=== PATIENT | female | born 1945 | race Caucasian/White ===

== ENCOUNTER → 2019-09-30 10:05 | Outpatient (BNVA) | payer MEDICARE, OTHER, SELFPAY | PROVIDERS: Visit Provider Orthopaedic Surgery | DX: M25.569 Pain in unspecified knee (principal); M25.561 Pain in right knee; M25.562 Pain in left knee | CPT/HCPCS: 73560; 73565 ==

== ENCOUNTER 2022-06-02 18:23 | Inpatient (IN) | payer MEDICARE, SELFPAY ==
[2022-06-02 18:38] VITALS: BP 168/83; PULSE 81; RESP 16; TEMP 36.7; O2SAT 97
--- NOTE | 2022-06-02 21:13 | W.ED.ABDPA2 ---
HPI - Abdominal Pain General: Chief Complaint: Abdominal Pain Stated Complaint: abd pain, n/v, no bowel movement in 4 days, pain Time Seen by Provider: 06/02/22 21:12 History of Present Illness: Ms. Palumbo is a 77-year-old lady with history of diverticulitis and abdominal surgeries presenting to the emergency department for abdominal pain with nausea and vomiting. She reports onset associated with eating peanuts approximately 3 to 4 days ago. Since that time she has had nausea with vomiting which is nonbilious and not bloody. She has also had initially diarrhea followed by no bowel movement and generalized abdominal pain. Symptoms began gradually and have since worsened. Intensity is moderate however at times become severe. She describes it as twisting and sometimes other characteristics of pain. She has had similar episodes in the past. No other specific changes in health, exacerbating, or alleviating factors identified. Onset (ago): day(s) Pain Consistency: constant Location: Diffuse Severity: moderate Quality: cramping, aching and other Radiation: none Migration to: no migration Exacerbating factors: eating, vomiting and movement Relieving factors: rest Context: other Associated Symptoms: Reports change in bowel habits, constipation, diarrhea, nausea and vomiting Review of Systems General: Reports: 10 or more systems reviewed and unremarkable except in HPI and below GI: Reports: nausea, vomiting, diarrhea, constipation and change in bowel habits PFS ED PFSH: Medical History History of cancer of left breast Osteoarthritis of knees, bilateral Surgical History History of bilateral mastectomy History of total abdominal hysterectomy and bilateral salpingo-oophorectomy Social History Smoking and tobacco status: never smoked Alcohol intake: never Physical Exam Const: COMMON NORMALS: alert GENERAL APPEARANCE: cooperative and well developed HENMT: COMMON NORMALS: normocephalic and atraumatic HEAD & SCALP: normocephalic and atraumatic Eye: COMMON NORMALS: conjunctivae normal CONJUNCTIVA: Yes conjunctivae normal SCLERA: sclerae normal Neck/C-Spine: COMMON NORMALS: supple GENERAL: Yes trachea midline Resp: COMMON NORMALS: clear to auscultation bilaterally EFFORT & INSPECTION: Yes able to speak in complete sentences AUSCULTATION: clear to auscultation bilaterally Cardio: COMMON NORMALS: regular rate and regular rhythm RATE: regular rate RHYTHM: regular rhythm GI: COMMON NORMALS: Soft to palpation PALPATION: Yes Soft to palpation, Yes Tenderness to palpation present (GI), No Guarding due to palpation present (GI) and No Rigid due to palpation Extremity: GENERAL: Yes normal exam except as noted and No edema Neuro: COMMON NORMALS: moves all extremities SENSORIUM/ORIENTATION: Yes alert and No Orientation impaired Psych: COMMON NORMALS: mental status grossly normal and Normal thought process present THOUGHT PROCESS: Normal thought process present Course Vital Signs: Vital signs: Vital Signs Temperature 98.9 F 06/06/22 12:54 Pulse Rate 70 06/06/22 12:54 Respiratory Rate 14 06/06/22 12:54 Blood Pressure 118/64 06/06/22 12:54 Pulse Oximetry 97 06/06/22 12:54 Oxygen Delivery Me thod 06/06/22 12:47 MDM - Abdominal Pain Medical Decision Making 77-year-old lady presenting with abdominal pain, nausea, vomiting, change in bowel habits. Exam as above. Abdominal tenderness without evidence of acute surgical abdomen. Labs notable for mild leukocytosis without other significant hematologic abnormality. Metabolic panel with mild metabolic stress and mild elevation in T bili as well as calcium. Lipase is normal. Urinalysis with hematuria without other evidence of urinary tract infection. CT demonstrates high-grade bowel obstruction in the mid small bowel and right axillary lymphadenopathy. I discussed the adenopathy with the patient, she has a very remote history of breast cancer, I did express need for follow-up and concern for recurrence of her breast cancer. Patient treated with analgesia, antiemetic, fluids. Discussed with general surgery, NG tube ordered, patient will be seen in consult. The results of ED evaluation were discussed with the patient including plan for admission due to requirement for level of care not available if discharged to prevent significant worsening/deterioration. Patient agreeable with plan. Discussed with hospitalist service who was agreeable to admit patient. Medical Records I reviewed the patient's medical records. Lab Data I reviewed the patient's lab results. 06/02/22 21:43 06/02/22 21:43 Labs/Radiology: Radiology Impressions Abdomen/Pelvis CT 06/02/22 21:36 IMPRESSION: 1. High-grade mechanical obstruction of the mid small bowel. The cause is not apparent. 2. Right axillary lymphadenopathy, likely malignant. 3. Incidental findings above. ADDENDUM: 06/02/22 3130 THIS REPORT CONTAINS FINDINGS THAT MAY BE CRITICAL TO PATIENT CARE. The findings were verbally communicated via telephone conference with Arron Ayers at 11:01 PM PICKER / PACKER on 06/02/2022. The findings were acknowledged and understood. KUB X-Ray 06/04/22 08:07 IMPRESSION: Nonobstructive bowel gas pattern. Laboratory Results WBC 11.8 10^3/uL (4.0-10.0) H 06/02/22 21:43 RBC 4.71 10^6/uL (4.1-5.3) 06/02/22 21:43 Hgb 14.7 g/dL (11.5-15.3) 06/02/22 21:43 Hct 44.9 % (37.0-47.0) 06/02/22 21:43 MCV 95.3 fl (81-99) 06/02/22 21:43 MCH 31.2 pg (28.0-34.0) 06/02/22 21:43 MCHC 32.7 g/dL (30.0-36.0) 06/02/22 21:43 RDW 13.1 % (12.1-15.1) 06/02/22 21:43 Plt Count 330 10^3/cmm (130-400) 06/02/22 21:43 MPV 9.4 fL (7.4-10.4) 06/02/22 21:43 Neut % (Auto) 83.7 % 06/02/22 21:43 Lymph % (Auto) 9.7 % 06/02/22 21:43 [place] % (Auto) 6.0 % 06/02/22 21:43 Eos % (Auto) 0.1 % 06/02/22 21:43 Baso % (Auto) 0.2 % 06/02/22 21:43 Neut # (Auto) 9.84 10^3/uL (1.8-7.7) H 06/02/22 21:43 Lymph # (Auto) 1.1 10^3/uL (0.8-4.8) 06/02/22 21:43 [place] # (Auto) 0.7 10^3/uL (0.2-0.9) 06/02/22 21:43 Eos # (Auto) 0.0 10^3/uL (0.0-0.8) 06/02/22 21:43 Baso # (Auto) 0.0 10^3/uL (0.0-0.1) 06/02/22 21:43 Nucleated RBC % (auto) 0 % 06/02/22 21:43 Nucleated RBCs # 0.0 /100WBC 06/02/22 21:43 Sodium 136 mmol/L (136-145) 06/02/22 21:43 Potassium 3.7 mmol/L (3.5-5.1) 06/02/22 21:43 Chloride 92 mmol/L (98-107) L 06/02/22 21:43 Carbon Dioxide 32 mmol/L (22-29) H 06/02/22 21:43 Anion Gap 15.7 (5-19) 06/02/22 21:43 BUN 20 mg/dL (8-23) 06/02/22 21:43 Creatinine 0.7 mg/dL (0.5-0.9) 06/02/22 21:43 GFR Calculation Not Reportable 06/02/22 21:43 Glucose 128 mg/dL (65-115) H 06/02/22 21:43 Calculated Osmolality 286 mOsm/kg (285-295) 06/02/22 21:43 Lactic Acid 1.4 mmol/L (0.5-2.2) 06/02/22 22:03 Calcium 10.7 mg/dL (8.5-10.5) H 06/02/22 21:43 Total Bilirubin 1.4 mg/dL (0.15-1.2) H 06/02/22 21:43 AST 20 U/L (0-32) 06/02/22 21:43 ALT 19 U/L (0-33) 06/02/22 21:43 Alkaline Phosphatase 57 U/L (35-105) 06/02/22 21:43 Total Protein 8.6 g/dL (6.6-8.7) 06/02/22 21:43 Albumin 4.9 g/dL (3.5-5.2) 06/02/22 21:43 Globulin 3.7 g/dL (1.3-4.6) 06/02/22 21:43 Lipase 9 U/L (13-60) L 06/02/22 21:43 Urine Color Yellow (Yellow) 06/02/22 21:55 Urine Appearance Clear (CLEAR) 06/02/22 21:55 Urine pH 5 (5-7) 06/02/22 21:55 Ur Specific [place] 1.025 (1.005-1.030) 06/02/22 21:55 Urine Protein 1+ (Negative) H 06/02/22 21:55 Urine Glucose (UA) Norm (Normal) 06/02/22 21:55 Urine Ketones 1+ (Negative) H 06/02/22 21:55 Urine Blood 2+ (Negative) H 06/02/22 21:55 Urine Nitrate Negative (Negative) 06/02/22 21:55 Urine Bilirubin Neg (Negative) 06/02/22 21:55 Urine Urobilinogen Neg mg/dL (Negative) 06/02/22 21:55 Ur Leukocyte Esterase Negative (Negative) 06/02/22 21:55 Urine RBC 5-10 /hpf (0-2) H 06/02/22 21:55 Urine WBC 0-4 /hpf (0-5) H 06/02/22 21:55 Ur Squamous Epith Cells 0-4 /hpf (0-5) H 06/02/22 21:55 Amorphous Sediment Not Reportable 06/02/22 21:55 Urine Bacteria Trace /hpf (NONE) 06/02/22 21:55 Urine Mucus Trace /hpf 06/02/22 21:55 Discharge Plan Discharge Patient Disposition: Admitted As Inpatient Admit Provider: Sheela Doll Clinical Impression: Small bowel obstruction, Abdominal pain, Nausea & vomiting, Hematuria, Axillary adenopathy Condition: Stable Discharge Diet: As Directed Discharge Activity: Resume usual activity Coding Level of Care Code ED Customer Resource Specialist for Chg Fwd Exam Comprehensive
--- NOTE | 2022-06-02 21:36 | CTR_ITS ---
PROCEDURE INFORMATION: Exam: CT Abdomen And Pelvis With Contrast Exam date and time: 06/02/2022 10:32 PM Age: 77 years old Clinical indication: Constipation and nausea and vomiting; Abdominal pain; Generalized; Prior surgery; Surgery date: 6+ months; Surgery type: Hysterectomy for endometrial CA. HX of breast CA and b/l mastectomies; Additional info: Abd pain, n/v, diarrhea then constipation, ? diverticulitis vs obstruction vs other TECHNIQUE: Imaging protocol: Computed tomography of the abdomen and pelvis with contrast. Radiation optimization: All CT scans at this facility use at least one of these dose optimization techniques: automated exposure control; mA and/or kV adjustment per patient size (includes targeted exams where dose is matched to clinical indication); or iterative reconstruction. Contrast material: OMNI 350; Contrast volume: 85 ml; Contrast route: INTRAVENOUS (IV); Other protocol: This patient has received 0 known CTs and 0 known cardiac nuclear medicine studies in the 12 months prior to the current study. COMPARISON: No relevant prior studies available. RADIATION DOSE METRICS: Total DLP (mGy-cm): 513.03 FINDINGS: Liver: The liver is normal. Gallbladder and bile ducts: The gallbladder is normal. There is no biliary dilation. Pancreas: The pancreas is unremarkable. Spleen: Splenic size is normal. There are scattered calcifications consistent with healed granulomas. Adrenal glands: The adrenal glands are unremarkable. Kidneys and ureters: The kidneys are unremarkable. No hydronephrosis or stones. No ureteral dilation. Stomach and bowel: The stomach is decompressed, preventing meaningful evaluation of wall thickness. The duodenum is normal. There is mild dilation and fluid filling of the proximal jejunum which progresses distally into the mid small bowel where there is fecalization of bowel contents and abrupt transition to decompressed distal small bowel. See axial series 5, image [id number]. The distal ileum is completely decompressed. The colon is unremarkable. Appendix: The appendix is normal. Intraperitoneal space: Trace pelvic free fluid. There is mild degenerative disease in the lumbar spine. Vasculature: There is mild aortic atherosclerotic disease. The portal, splenic and superior mesenteric veins are patent. Lymph nodes: There are enlarged right axillary lymph nodes. There is no lymphadenopathy in the retroperitoneum, mesentery, pelvis or inguinal regions. Urinary bladder: The urinary bladder is unremarkable. Reproductive: The uterus is absent. There is no adnexal mass or large cyst. Bones/joints: There is moderate degenerative disease at the left hip. The bony pelvis is intact. Soft tissues: Bilateral silicone breast implants without evidence of extracapsular rupture. 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 CT/CT abdomen pelvis w con* [id number] IMPRESSION: 1. High-grade mechanical obstruction of the mid small bowel. The cause is not apparent. 2. Right axillary lymphadenopathy, likely malignant. 3. Incidental findings above.
[2022-06-02 21:52] LABS: Basophils % 0.2 %; Eosinophils % 0.1 %; Hematocrit 44.9 % (37.0-47.0); Hemoglobin 14.7 g/dL (11.5-15.3); Lymphocytes # 1.1 10^3/uL (0.8-4.8); Lymphocytes % 9.7 %; Mean Corpuscular HGB Conc 32.7 g/dL (30.0-36.0); Mean Corpuscular Hemoglobin 31.2 pg (28.0-34.0); Mean Corpuscular Volume 95.3 fl (81-99); Mean Platelet Volume 9.4 fL (7.4-10.4); Monocytes # 0.7 10^3/uL (0.2-0.9); Neutrophils # 9.84 10^3/uL (1.8-7.7); Neutrophils % 83.7 %; Nucleated Red Blood Cells % 0 %; Platelet Count 330 10^3/cmm (130-400); Red Blood Count 4.71 10^6/uL (4.1-5.3); Red Cell Distribution Width 13.1 % (12.1-15.1); White Blood Count 11.8 10^3/uL (4.0-10.0)
[2022-06-02] MEDS: morphine 4 mg/mL SDV 1 mL IVP (21:53)
[2022-06-02] MEDS: ondansetron 2 mg/ML SDV 2 mL 4 MG IVP (21:53)
[2022-06-02] MEDS: sodium chloride 0.9% 1,000 ML 999 ML IV (21:53)
[2022-06-02 22:05] LABS: Add Urine Microscopic? YES; Bilirubin Urine Neg (Negative); Blood Urine 2+ (Negative); Glucose Urine UA Norm (Normal); Ketones Urine 1+ (Negative); Leukocyte Esterase Urine Negative (Negative); Nitrate Urine Negative (Negative); Protein Urine 1+ (Negative); Specific Gravity, Urine 1.025 (1.005-1.030); Urine Appearance Clear (CLEAR); Urine Color Yellow (Yellow); Urobilinogen Urine Neg (Negative); pH Urine 5 (5-7)
[2022-06-02 22:10] VITALS: BP 163/65; PULSE 75; RESP 14; O2SAT 92
[2022-06-02 22:11] LABS: Add Urine Culture? No; Bacteria Urine TRACE /hpf; Mucus Urine TRACE /hpf; Squamous Epithelial Cell Urine 0-4 /hpf (0-5); WBC Urine 0-4 /hpf (0-5)
[2022-06-02 22:13] LABS: Alanine Aminotransferase 19 U/L (0-33); Albumin Level 4.9 g/dL (3.5-5.2); Alkaline Phosphatase 57 U/L (35-105); Anion Gap 15.7 (5-19); Aspartate Amino Transferase 20 U/L (0-32); Blood Urea Nitrogen 20 mg/dL (8-23); Calcium 10.7 mg/dL (8.5-10.5); Carbon Dioxide 32 mmol/L (22-29); Chloride 92 mmol/L (98-107); Globulin 3.7 g/dL (1.3-4.6); Glucose 128 mg/dL (65-115); Lipase 9 U/L (13-60); Osmolality Calculated 286 mOsm/kg (285-295); Potassium 3.7 mmol/L (3.5-5.1); Sodium 136 mmol/L (136-145); Total Bilirubin 1.4 mg/dL (0.15-1.2); Total Protein 8.6 g/dL (6.6-8.7)
[2022-06-02] MEDS: iohexol 350 mg/mL 500 mL Btl (per mL) IV (22:15)
[2022-06-02 22:25] LABS: Lactic Sepsis W/Reflex 1.4 mmol/L (0.5-2.2)
[2022-06-02 23:01] VITALS: BP 132/66; PULSE 80; RESP 14; O2SAT 97
[2022-06-02 23:30] VITALS: BP 142/61; PULSE 72; RESP 14; O2SAT 98
--- NOTE | 2022-06-02 23:46 | P.HP_ITS ---
Providers/Chief Complaint Admitting Physician: Sheela Doll MD Chief Complaint: abd pain, n/v, no bowel movement in 4 days, pain History of Present Illness Nelly Segura is a 77 year old female Seen earlier today by urgent care where she presented with 3 to 4 days of abdominal pain, abdominal distention and not having had a bowel movement for 4 days. Patient suspected she may have had a diverticulitis and presented to the urgent care at [facility]. Patient was noted to be in significant discomfort, could not lay still and he was sent into the emergency room. She has had nausea and vomiting. No hematemesis. Here she was found to have small bowel obstruction. NGT has been placed and she is being admitted for further care. No fever or chills. normal lactate Review of Systems General: Reports: 10 or more systems reviewed and unremarkable except in HPI and below Const: Denies: fever(s), chills or body aches Eyes: Denies: change in vision, blurry vision or photophobia ENMT: Denies: throat pain, enlarged tonsils, odynophagia or nasal congestion Card: Denies: chest pain, palpitations, irregular heart rhythm, edema, swelli ng of feet/ankles, lightheadedness, pre-syncope, dyspnea on exertion or orthopnea Resp: Denies: dyspnea, productive cough, non-productive cough, wheezing, stridor, pain on inspiration, change in phlegm color, hemoptysis or chest congestion GI: Denies: abdominal pain, nausea, vomiting, hematemesis, coffee ground emesis, dysphagia, heartburn, diarrhea, constipation, GI cramping, change in stool character, hematochezia or melena : Denies: flank pain, difficulty voiding, dysuria, urinary frequency, urinary urgency, urinary hesitancy or hematuria Musc: Denies: neck pain, back pain, extremity pain, joint swelling, joint warmth or deformity Neuro: Denies: headache(s), numbness in extremities, weakness in extremities, sensory changes, difficulty walking, frequent falls, dizziness, vertigo, behavioral changes, Slurred speech present or seizure-like activity Psych: Denies: anxiety, depression, suicidal ideation or homicidal ideation Endo: Denies: polyuria, polydipsia, tired all the time, cold intolerance or hot flashes El/Lymph: Denies: easy bruising or easy bleeding Medications/Allergies Home Medications Medication Instructions Recorded Confirmed Last Taken Type ibuprofen 200 mg capsule 200 mg PO Q6H PRN 09/30/19 06/02/22 Unknown History Allergies Allergy/AdvReac Type Severity Reaction Status Date / Time erythromycin base Allergy unknown Verified 06/02/22 18:43 Sulfa (Sulfonamide Allergy unknown Verified 06/02/22 18:43 Antibiotics) PFSH Acute PFSH: Medical History Osteoarthritis of knees, bilateral Surgical History History of bilateral mastectomy History of total abdominal hysterectomy and bilateral salpingo-oophorectomy Social History Smoking and tobacco status: never smoked Alcohol intake: never Vitals/I&O/Wt Last Vital Signs Temp 98.0 F 06/02/22 18:38 Pulse 75 06/02/22 22:10 Resp 14 06/02/22 22:10 BP 163/65 06/02/22 22:10 Pulse Ox 92 06/02/22 22:10 O2 Del Method 06/02/22 18:38 Weight last 48 hrs Weight 65.771 kg Physical Exam Narrative: General: No acute distress, AO x3 HEENT: PERRLA, pupils bilaterally equal and reactive, pallors not present Chest: Normal vesicular breath sounds, no added sounds, equal good air entry bilaterally CVS: S1-S2 regular, no murmurs, no tachycardia, no gallops, no rubs Abdomen: Soft, mildly distended Neuro: No focal deficits, no facial deformity, AO x3, power 5/5 in all limbs Data 06/02/22 21:43 06/02/22 21:43 Other Labs: Radiology Impressions Abdomen/Pelvis CT 06/02/22 21:36 IMPRESSION: 1. High-grade mechanical obstruction of the mid small bowel. The cause is not apparent. 2. Right axillary lymphadenopathy, likely malignant. 3. Incidental findings above. ADDENDUM: 06/02/22 7176 THIS REPORT CONTAINS FINDINGS THAT MAY BE CRITICAL TO PATIENT CARE. The findings were verbally communicated via telephone conference with Arron Ayers at 11:01 PM MOVE COORDINATOR on 06/02/2022. The findings were acknowledged and understood. Laboratory Results WBC 11.4 10^3/uL (4.0-10.0) H 06/03/22 05:15 RBC 4.21 10^6/uL (4.1-5.3) 06/03/22 05:15 Hgb 13.2 g/dL (11.5-15.3) 06/03/22 05:15 Hct 40.9 % (37.0-47.0) 06/03/22 05:15 MCV 97.1 fl (81-99) 06/03/22 05:15 MCH 31.4 pg (28.0-34.0) 06/03/22 05:15 MCHC 32.3 g/dL (30.0-36.0) 06/03/22 05:15 RDW 13.3 % (12.1-15.1) 06/03/22 05:15 Plt Count 278 10^3/cmm (130-400) 06/03/22 05:15 MPV 9.6 fL (7.4-10.4) 06/03/22 05:15 Neut % (Auto) 81.8 % 06/03/22 05:15 Lymph % (Auto) 8.2 % 06/03/22 05:15 [place] % (Auto) 9.0 % 06/03/22 05:15 Eos % (Auto) 0.2 % 06/03/22 05:15 Baso % (Auto) 0.4 % 06/03/22 05:15 Neut # (Auto) 9.30 10^3/uL (1.8-7.7) H 06/03/22 05:15 Lymph # (Auto) 0.9 10^3/uL (0.8-4.8) 06/03/22 05:15 [place] # (Auto) 1.0 10^3/uL (0.2-0.9) H 06/03/22 05:15 Eos # (Auto) 0.0 10^3/uL (0.0-0.8) 06/03/22 05:15 Baso # (Auto) 0.0 10^3/uL (0.0-0.1) 06/03/22 05:15 Nucleated RBC % (auto) 0 % 06/03/22 05:15 Nucleated RBCs # 0.0 /100WBC 06/03/22 05:15 Sodium 139 mmol/L (136-145) 06/03/22 05:15 Potassium 3.2 mmol/L (3.5-5.1) L 06/03/22 05:15 Chloride 100 mmol/L (98-107) 06/03/22 05:15 Carbon Dioxide 30 mmol/L (22-29) H 06/03/22 05:15 Anion Gap 12.2 (5-19) 06/03/22 05:15 BUN 18 mg/dL (8-23) 06/03/22 05:15 Creatinine 0.6 mg/dL (0.5-0.9) 06/03/22 05:15 GFR Calculation Not Reportable 06/03/22 05:15 Glucose 146 mg/dL (65-115) H 06/03/22 05:15 Calculated Osmolality 293 mOsm/kg (285-295) 06/03/22 05:15 Lactic Acid 1.4 mmol/L (0.5-2.2) 06/02/22 22:03 Calcium 9.5 mg/dL (8.5-10.5) 06/03/22 05:15 Magnesium 1.9 mg/dL (1.7-2.3) 06/03/22 05:15 Total Bilirubin 1.0 mg/dL (0.15-1.2) 06/03/22 05:15 AST 17 U/L (0-32) 06/03/22 05:15 ALT 14 U/L (0-33) 06/03/22 05:15 Alkaline Phosphatase 48 U/L (35-105) 06/03/22 05:15 Total Protein 7.0 g/dL (6.6-8.7) 06/03/22 05:15 Albumin 4.0 g/dL (3.5-5.2) 06/03/22 05:15 Globulin 3.0 g/dL (1.3-4.6) 06/03/22 05:15 Lipase 9 U/L (13-60) L 06/02/22 21:43 Urine Color Yellow (Yellow) 06/02/22 21:55 Urine Appearance Clear (CLEAR) 06/02/22 21:55 Urine pH 5 (5-7) 06/02/22 21:55 Ur Specific [place] 1.025 (1.005-1.030) 06/02/22 21:55 Urine Protein 1+ (Negative) H 06/02/22 21:55 Urine Glucose (UA) Norm (Normal) 06/02/22 21:55 Urine Ketones 1+ (Negative) H 06/02/22 21:55 Urine Blood 2+ (Negative) H 06/02/22 21:55 Urine Nitrate Negative (Negative) 06/02/22 21:55 Urine Bilirubin Neg (Negative) 06/02/22 21:55 Urine Urobilinogen Neg mg/dL (Negative) 06/02/22 21:55 Ur Leukocyte Esterase Negative (Negative) 06/02/22 21:55 Urine RBC 5-10 /hpf (0-2) H 06/02/22 21:55 Urine WBC 0-4 /hpf (0-5) H 06/02/22 21:55 Ur Squamous Epith Cells 0-4 /hpf (0-5) H 06/02/22 21:55 Amorphous Sediment Not Reportable 06/02/22 21:55 Urine Bacteria Trace /hpf (NONE) 06/02/22 21:55 Urine Mucus Trace /hpf 06/02/22 21:55 A&P Assessment and plan (1) Small bowel obstruction: High-grade mechanical obstruction of the mid small bowel on CT NGT in place, to low intermittent suction Suregry consult Conservative management for now IVF D5NS @ 100 cc/hr (2) Abdominal pain: Plan HTN: Does not typically take medications at home, will add prmn hydralazine Incidentally noted axillary lymahadenopathy : h/o breast ca, will likely need biopsy for further diagnostics Attestations Medical Necessity Statement*: > 2mdinight admission aticipated for management of SBO Coding Level of Care Code Acute Code for Chg Fwd Diagnoses Small bowel obstruction K56.609 Abdominal pain R10.9
[2022-06-02 23:47] VITALS: BP 158/79; PULSE 80; RESP 17; TEMP 36.8; O2SAT 95
[2022-06-03] VITALS (30 sets, daily range): BP systolic 97–162; BP diastolic 42–80; PULSE 57–157; RESP 12–25; TEMP 36.7–36.9; O2SAT 90–99; BMI 29.7
[2022-06-03] MEDS: midazolam 1 mg/mL INJ 2 mL 2 MG IVP (00:25)
[2022-06-03] MEDS: cetacaine Spray 5 gm Can 1 SPRAY TOPICAL (00:30)
[2022-06-03] MEDS: famotidine 20 mg/2 mL INJ IVP (01:54)
[2022-06-03] MEDS: enoxaparin 40 mg/0.4 mL Syringe SUBCUT (01:54)
[2022-06-03] MEDS: dextrose 5%-sod chloride 0.9% 1,000 ML 100 ML IV ×3 (01:54→19:48)
[2022-06-03] MEDS: morphine 4 mg/mL SDV 1 mL 2 MG IVP ×2 (04:06→09:28)
[2022-06-03 05:40] LABS: Basophils % 0.4 %; Eosinophils % 0.2 %; Hematocrit 40.9 % (37.0-47.0); Hemoglobin 13.2 g/dL (11.5-15.3); Lymphocytes # 0.9 10^3/uL (0.8-4.8); Lymphocytes % 8.2 %; Mean Corpuscular HGB Conc 32.3 g/dL (30.0-36.0); Mean Corpuscular Hemoglobin 31.4 pg (28.0-34.0); Mean Corpuscular Volume 97.1 fl (81-99); Mean Platelet Volume 9.6 fL (7.4-10.4); Neutrophils % 81.8 %; Nucleated Red Blood Cells % 0 %; Platelet Count 278 10^3/cmm (130-400); Red Blood Count 4.21 10^6/uL (4.1-5.3); Red Cell Distribution Width 13.3 % (12.1-15.1); White Blood Count 11.4 10^3/uL (4.0-10.0)
[2022-06-03 06:04] LABS: Alanine Aminotransferase 14 U/L (0-33); Alkaline Phosphatase 48 U/L (35-105); Anion Gap 12.2 (5-19); Aspartate Amino Transferase 17 U/L (0-32); Blood Urea Nitrogen 18 mg/dL (8-23); Calcium 9.5 mg/dL (8.5-10.5); Carbon Dioxide 30 mmol/L (22-29); Chloride 100 mmol/L (98-107); Glucose 146 mg/dL (65-115); Magnesium 1.9 mg/dL (1.7-2.3); Osmolality Calculated 293 mOsm/kg (285-295); Potassium 3.2 mmol/L (3.5-5.1); Sodium 139 mmol/L (136-145)
--- NOTE | 2022-06-03 08:31 | XRR_ITS ---
PROCEDURE INFORMATION: Exam: XR Abdomen Exam date and time: 06/03/2022 10:50 AM Age: 77 years old Clinical indication: Abdominal pain; Generalized; Additional info: Sbo TECHNIQUE: Imaging protocol: Radiologic exam of the abdomen. Views: Frontal supine view of the abdomen. 1 View. Total images: 1 COMPARISON: CT abdomen pelvis w con* [id number] 06/02/2022 10:32 PM FINDINGS: Tubes, catheters and devices: Enteric tube is seen with the tip in the body of the stomach. Gastrointestinal tract: Bowel gas pattern is nondistended and nonobstructive. Intraperitoneal space: Numerous surgical clips noted within the lower abdomen and pelvis. Organs: Urinary contrast material present at the time of imaging. Bones/joints: There are moderate degenerative changes in the left hip joint. Spinal degenerative changes are evident. XR/XR KUB portable [id number] IMPRESSION: 1. Normal bowel gas pattern 2. Enteric tube is seen with the tip in the body of the stomach.
--- NOTE | 2022-06-03 09:01 | ECG_ITS ---
[facility] Test Date: 2022-06-03 Pat Name: Nelly Segura Department: Room: 276 Gender: Female Hand Hardener: : 1945 Requested By: Quan Perea Order Number: [id number] Evelin MD: Ruel Leary M.D. Measurements Intervals [place] Rate: 137 P: 0 RI: 0 QRS: 56 QRSD: 80 T: -60 QT: 306 QTc: 463 Interpretive Statements ATRIAL FIBRILLATION WITH RAPID VENTRICULAR RESPONSE NONSPECIFIC ST & T-WAVE ABNORMALITY No previous ECG available for comparison Electronically Signed On 06-03-2022 11:18:42 STEEL POURER by Ruel Leary M.D. [id number]
[2022-06-03] MEDS: adenosine 3 mg/mL SDV 2mL 6 MG IVP (09:20)
[2022-06-03] MEDS: metoprolol tartrate 1 mg/1 mL SDV 5 mL 5 MG IVP ×2 (09:25)
[2022-06-03] MEDS: magnesium sulfate premix 2 GM/50 ML PIGGYBACK IV (09:26)
[2022-06-03 09:27] LABS: Chol HDL Ratio 4.33 mg/dL (0.0-4.40); Cholesterol 212 mg/dL (0-200); HDL Cholesterol 49 mg/dL (60-100); LDL Cholesterol Calculated 120 mg/dL (50-129); LDL HDL Ratio 2.45 RATIO (0.00-3.22); Thyroid Stimulating Hormone 1.66 uIU/mL (0.27-4.20); Triglycerides 216 mg/dL (0-150)
[2022-06-03 09:43] LABS: Troponin(5th) Baseline 8 ng/L (0-10)
--- NOTE | 2022-06-03 09:43 | P.CONIM_ITS ---
Providers/Reason For Consult Consulting Physician/Specialty*: Dr. Delfino Beckett, DO/General surgery Reason for Consult*: Small bowel obstruction Attending Physician: Quan Perea MD History of Present Illness History of Present Illness Nelly Segura is a 77 year old female, with a history of diverticulitis, total abdominal hysterectomy with bilateral salpingo-oophorectomy and left breast cancer with bilateral mastectomies and Mediport placement, who presented to the hospital with a 4-day history of abdominal pain nausea and vomiting. She reports that she does not pass flatus or had a bowel movement in 3 or 4 days. Her pain is dull diffuse and constant. Palpation makes the pain worse. The NG tube made the pain better. She denies any hematemesis. She had left breast cancer and a mastectomy with 45 years ago. 2 years after that she had a prophylactic mastectomy on the right. She reports that she has not had a m ammogram in several years. CT shows mid bowel small bowel obstruction and prominent right axillary lymph nodes Review of Systems General: Reports: 10 or more systems reviewed and unremarkable except in HPI and below Medications/Allergies Home Medications Medication Instructions Recorded Confirmed Last Taken Type ibuprofen 200 mg capsule 200 mg PO Q6H PRN 09/30/19 06/02/22 Unknown History Allergies Allergy/AdvReac Type Severity Reaction Status Date / Time erythromycin base Allergy unknown Verified 06/02/22 18:43 Sulfa (Sulfonamide Allergy unknown Verified 06/02/22 18:43 Antibiotics) Current Medications Generic Name Dose Route Start Last Admin Trade Name Freq PRN Reason Stop Dose Admin Enoxaparin Sodium 40 mg 06/02/22 23:45 06/03/22 01:54 Enoxaparin 40 Mg/0.4 Ml Syringe SUBCUT 40 mg Q24H WALDEMAR Administration Famotidine 20 mg 06/02/22 23:45 06/03/22 01:54 Famotidine 20 Mg/2 Ml Inj IVP 20 mg Q12H WALDEMAR Administration Dextrose/Sodium Chloride 1,000 mls @ 100 mls/hr 06/02/22 23:45 06/03/22 01:54 Dextrose 5%-Sod Chloride 0.9% IV 100 mls/hr .Q10H WALDEMAR Administration Magnesium Sulfate 2 gm in 50 mls @ 50 mls/hr 06/03/22 09:23 01/29/23 09:26 Magnesium Sulfate Premix IV 06/03/22 10:22 50 mls/hr ONCE ONE Administration Morphine Sulfate 2 mg 06/02/22 23:47 06/03/22 09:28 Morphine 4 Mg/Ml Sdv 1 Ml IVP 2 mg Q4H PRN Administration SEVERE PAIN PFSH Acute PFSH: Medical History (Updated 06/03/22 @ 09:47 by Delfino Beckett DO) History of cancer of left breast Osteoarthritis of knees, bilateral Surgical History (Updated 06/03/22 @ 09:47 by Delfino Beckett DO) History of bilateral mastectomy History of total abdominal hysterectomy and bilateral salpingo-oophorectomy Social History Smoking and tobacco status: never smoked Alcohol intake: never Vitals/I&O/Wt Last Vital Signs Temp 98.0 F 06/03/22 08:00 Pulse 80 06/03/22 08:00 Resp 17 06/03/22 08:00 BP 134/76 06/03/22 08:00 Pulse Ox 96 06/03/22 08:00 O2 Del Method 06/03/22 08:00 06/02/22 06/03/22 06/03/22 22:59 06:59 14:59 Intake Total 1000 / 1000 Balance 1000 / 1000 Weight last 48 hrs Weight 147 lb 8 oz Weight 145 lb Physical Exam Narrative: General : Patient is well developed , no acute distress, oriented x3 Head : Normal cephalic, a-traumatic. Ears : Pinnae and external canal are normal. Hearing is normal. Eyes : PERRLA, Sclera and injection are normal. No conjunctival discharge. Nose : Mucous membranes are without erythema. Throat : buccal mucosa is normal, gums are without significant recession or hypertrophy. Lungs : Equal chest rise bilaterally, no use of accessory muscles, trachea is midline. Cor : A. fib with RVR Breast: Bilateral mastectomies with breast implants. No breast masses palpated bilaterally. There is clinically positive right axillary lymph nodes. No palpable left axillary lymph nodes Abdomen : Soft, mild distention, mild diffuse tenderness to palpation, no guarding rebound or masses Extremities : No edema, no cyanosis or clubbing, dorsalis pedis pulses are present bilaterally, non-tender to palpation of calves. Upper extremities are normal bilaterally. Back : non-tender to palpation, no CVA tenderness. Neuro : CN II - XII intact, Upper and lower extremities have equal and full strength Data 06/03/22 05:15 06/03/22 05:15 A&P Assessment and plan (1) Small bowel obstruction: (2) Axillary adenopathy: (3) History of cancer of left breast: (4) History of bilateral mastectomy: Plan N.p.o. with NG tube to low intermittent wall suction IV fluids Await return of bowel function Recommend bilateral mammograms and ultrasound of right axilla with core needle biopsy as an outpatient Conservative therapy for now. She does not have return of bowel function the next few days she will need at least a diagnostic laparoscopy. Medical management per hospitalist Thank you for this consultation Coding Level of Care Code Acute Code for Chg Fwd Diagnoses Small bowel obstruction K56.609 Axillary adenopathy R59.0 History of cancer of left breast Z85.3 History of bilateral mastectomy Z90.13
[2022-06-03] MEDS: lidocaine 1% 5 ML in potassium chloride premix 100 ML 26.25 ML IV (10:00)
[2022-06-03] MEDS: alteplase 1 mg/mL SDV 2 mL 2 MG INTRACATH (10:04)
--- NOTE | 2022-06-03 10:33 | PC.NURSE ---
Pt appeared to be in SVT on panel monitor 170-200s. Pt is asymptomatic and reports no prior history of arrhythmias. Dr. Beckett and Dr. Perea at bedside. Orders given to administer 6mg adenosine, 5mg metoprolol x 2 doses, 1L bolus NS, 2g magnesium IV. Pt hooked to ZOLL during this time. L chest port accessed will flush but no blood return. Per Dr. Perea tx patient to ICU. Bedside report given ARIN Kaur.
--- NOTE | 2022-06-03 10:42 | USCV_ITS ---
Nelly Segura Age: 77 Gender: F : 1945 Exam Date: 06/03/2022 12:36 Ordering Phys: Quan Perea MD Technologist: NORM Exam Location: [facility] – [place] Indication: afib rvr BP: / HR: 72 Rhythm: Sinus Technical Quality: Adequate MEASUREMENTS (Male / Female) Normal Values 2D ECHO LV Diastolic Diameter PLAX 4.3 cm 4.2 - 5.9 / 3.9 - 5.3 cm LV Systolic Diameter PLAX 3.2 cm IVS Diastolic Thickness 0.6 cm 0.6 - 1.0 / 0.6 - 0.9 cm IVS Systolic Thickness 1.1 cm LVPW Diastolic Thickness 0.6 cm 0.6 - 1.0 / 0.6 - 0.9 cm LVPW Systolic Thickness 1.0 cm LVOT Diameter 2.0 cm LV Ejection Fraction 2D Teich 52.8 % LA Diameter 2.6 cm M-MODE Aortic Annulus Diameter 2.5 cm LA Ao Ratio MM 1.1 MV E Point Septal Separation 0.3 cm DOPPLER PV Peak Velocity 88.0 cm/s FINDINGS Left Ventricle Left ventricle is normal in size. LV systolic function is normal with EF of 55 to 60%. No regional wall motion abnormalities are seen. Right Ventricle Normal in size and function Right Atrium Normal in size Left Atrium Normal in size Mitral Valve Structurally noraml mitral valve. Doppler exam not performed Aortic Valve Structurally normal aortic valve. Doppler exam not performed. Tricuspid Valve Not well visualized Pulmonic Valve Not well visualized. Trace pulmonic regurgitation. Pericardium Normal Aorta Normal in size IVC Appears to be normal CONCLUSIONS LV systolic function is normal with EF of 55 to 60% Grossly normal mitral valve. Trace pulmonic regurgitation No comparison studies are available. Ruel Leary MD (Electronically Signed) Final Date: 03 June 2022 19:39 S
--- NOTE | 2022-06-03 11:15 | ECG_ITS ---
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 Measurements Intervals [place] Rate: 71 P: 29 CT: 155 QRS: 34 QRSD: 78 T: 39 QT: 382 QTc: 417 Interpretive Statements SINUS RHYTHM LOW QRS VOLTAGE IN PRECORDIAL LEADS [QRS DEFLECTION < 1.0 mV IN CHEST LEADS] Compared to ECG 06/03/2022 09:18:28 Low QRS voltage now present Atrial fibrillation no longer present T-wave abnormality no longer present Electronically Signed On 06-03-2022 21:43:45 EXTRAS CASTING DIRECTOR by Ruel Leary M.D. [id number]
[2022-06-03 11:37] LABS: Lactate (Lactic Acid level) 1.7 mmol/L (0.5-2.2)
[2022-06-03 11:39] LABS: Troponin 5 2HR 8.82 ng/L (0-10)
[2022-06-03 11:55] LABS: NT Pro B Type Natriuretic Pept 574 pg/mL (0-450)
[2022-06-03] MEDS: dilTIAZem 30 mg Tablet PO ×2 (12:20→18:51)
--- NOTE | 2022-06-03 12:40 | PC.NURSE ---
New Orders Received Patient noted to be in SR on telemetry, notified Dr. Perea who gave telephone orders to titrate Cardizem gtt off and admin scheduled PO Cardizem.
--- NOTE | 2022-06-03 14:21 | P.PN_ITS ---
Subjective Subjective: Patient was urgently seen on [facility] at roughly 9 AM, heart rates in the high 180s, look like SVT on the monitor she is alert oriented on 2 L, nursing staff and surgery at bedside she denies any abdominal pain, chest pain, no cardiovascular history, was given 6 of adenosine however heart rates came down to the 140s, EKG showed A. fib with RVR, was given metoprolol 5 mg twice, heart rates came down to the 120s, it was difficult to access her left port, nursing staff were diligently working to get another IV, she was given 2 g of mag, both fluid bolus, she had potassium hanging Patient was moved out to the ICU, seen again in ICU, started on a Cardizem drip she remains alert oriented x3, denies any chest pain, no palpitations, no shortness of breath Again examined in the ICU A. fib heart rates in the 120s, heart rates are much improved, her Cardizem is being titrated upwards Patient converted into normal sinus rhythm, resting comfortably on 2 L Vitals/I&O/Wt Last Vital Signs Temp 98.0 F 06/03/22 08:00 Pulse 150 H 06/03/22 09:55 Resp 20 H 06/03/22 09:55 BP 113/62 06/03/22 09:55 Pulse Ox 94 06/03/22 09:55 O2 Del Method 06/03/22 08:00 06/02/22 06/03/22 06/03/22 22:59 06:59 14:59 Intake Total 1000 / 1000 66.333 / 66.333 Balance 1000 / 1000 66.333 / 66.333 Weight last 48 hrs Weight 66.905 kg Weight 65.771 kg Physical Exam Const: COMMON NORMALS: no acute distress and patient oriented x3 Resp: COMMON NORMALS: normal respiratory effort, No retractions and No use of accessory muscles AUSCULTATION: crackles Cardio: COMMON NORMALS: S1 normal heart sound present and S2 normal heart s ound present RATE: tachycardic RHYTHM: abnormal rhythm HEART SOUNDS: S1 normal heart sound present and S2 normal heart sound present GI: OTHER: Abdomen soft, slightly distended, decreased bowel sounds, no guarding, no rebound, no rigidity Extremity: COMMON NORMALS: no pedal edema Neuro: COMMON NORMALS: patient oriented x3 Psych: COMMON NORMALS: mental status grossly normal Data 06/03/22 05:15 06/03/22 05:15 A&P Assessment and plan (1) Small bowel obstruction: High-grade mechanical obstruction of the mid small bowel on CT NGT in place, to low intermittent suction Surgery on-call, Conservative management for now IVF D5NS @ 100 cc/hr (2) Abdominal pain: (3) Atrial fibrillation with RVR: - Continue p.o. Cardizem 30 every 6 hours -Patient's [id number] 2 score is 3 -Continue heparin drip -TSH, mag, cardiac echo (4) Hypokalemia: Replace electrolyte as (5) Hypomagnesemia: Replace electrolytes (6) Hypertriglyceridemia: (7) Hypoxia: On 2 L, monitor respiratory status closely Plan HTN: Does not typically take medications at home, will add prmn hydralazine Incidentally noted axillary lymahadenopathy : h/o breast ca, will likely need biopsy for further diagnostics Attestations Medical Necessity Statement*: Patient requires hospitalization, inpatient, greater than 2 minutes, for distal high-grade bowel obstruction, A. fib with RVR, Critical Care Time: Critical care time spent over 50 minutes Coding Level of Care Code Acute Code for Chg Fwd Diagnoses Small bowel obstruction K56.609 Abdominal pain R10.9 Atrial fibrillation with RVR I48.91 Hypokalemia E87.6 Hypomagnesemia E83.42 Hypertriglyceridemia E78.1 Hypoxia R09.02
[2022-06-03 15:15] LABS: Troponin 5 2HR Delta 0.82 ABS# (0-10)
--- NOTE | 2022-06-03 15:33 | ECG_ITS ---
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 Measurements Intervals [place] Rate: 68 P: 56 RI: 153 QRS: 30 QRSD: 80 T: 45 QT: 402 QTc: 430 Interpretive Statements SINUS RHYTHM LOW QRS VOLTAGE IN PRECORDIAL LEADS [QRS DEFLECTION < 1.0 mV IN CHEST LEADS] Compared to ECG 06/03/2022 12:48:18 No significant changes Electronically Signed On 06-03-2022 21:43:07 EDUCATIONAL TECHNOLOGIST by Ruel Leary M.D. [id number]
[2022-06-03 15:39] LABS: Carcinoembryonic Antigen 0.7 ng/mL (0.0-4.7)
[2022-06-03 15:58] LABS: Estmated Average Glucose 111; Hemoglobin A1C 5.5 % (4.0-6.0)
[2022-06-03 15:59] LABS: Troponin 5 6HR 9.59 ng/L (0-10)
[2022-06-03 16:35] LABS: Troponin 5 6HR Delta 1.59 ng/L (0-12)
[2022-06-03] MEDS: heparin drip 25,000 UNIT/500 ML PREMIX 19 UNIT IV (16:40)
[2022-06-03 23:05] LABS: Partial Thromboplastin Time 60.4 SECONDS (23.9-36.7)
--- NOTE | 2022-06-03 23:43 | PC.NURSE ---
Addendum entered by Ella Koenig RN 06/04/22 00:36: Pt refused Cetacaine. Medication purpose explained to pt. She states, I'm okay now, maybe I will try that later Addendum entered by Ella Koenig RN 06/03/22 23:55: Cetacaine [place]* not cepacaine Original Note: Pt appeared to be extremely anxious when expressing concerns about her NG tube. She says she cant breath w/ the tube in her nose, and that she wants the NG tube removed so this can all be over and she can get some sleep. SpO2 93%. Several interventions to make pt more comfortable (fan placed in room, repositioned pt, adjusted NG tube dressing on the nose, therapeutic communication). Dr. Doll made aware of situation. New order for cepacaine spray to help make the NG more tolerable and 0.5mg IV Ativan ONCE if the cepacaine does not help.
[2022-06-04] VITALS (75 sets, daily range): BP systolic 88–147; BP diastolic 49–93; PULSE 55–78; RESP 12–32; TEMP 36.7–36.8; O2SAT 90–100
[2022-06-04] MEDS: dilTIAZem 30 mg Tablet PO ×5 (00:05→23:41)
[2022-06-04] MEDS: dextrose 5%-sod chloride 0.9% 1,000 ML 100 ML IV (03:55)
[2022-06-04 04:35] LABS: Basophils % 0.7 %; Eosinophils # 0.1 10^3/uL (0.0-0.8); Eosinophils % 1.6 %; Hematocrit 34.6 % (37.0-47.0); Hemoglobin 11.2 g/dL (11.5-15.3); Lymphocytes # 1.2 10^3/uL (0.8-4.8); Lymphocytes % 20.7 %; Mean Corpuscular HGB Conc 32.4 g/dL (30.0-36.0); Mean Corpuscular Volume 98.9 fl (81-99); Mean Platelet Volume 10.2 fL (7.4-10.4); Monocytes # 0.7 10^3/uL (0.2-0.9); Monocytes % 11.6 %; Neutrophils # 3.64 10^3/uL (1.8-7.7); Neutrophils % 64.9 %; Nucleated Red Blood Cells % 0 %; Platelet Count 193 10^3/cmm (130-400); Red Cell Distribution Width 13.5 % (12.1-15.1); White Blood Count 5.6 10^3/uL (4.0-10.0)
[2022-06-04 04:54] LABS: INR 1.07 (0.8-1.2)
[2022-06-04 05:04] LABS: Partial Thromboplastin Time 81.2 SECONDS (23.9-36.7)
[2022-06-04 05:05] LABS: Alanine Aminotransferase 12 U/L (0-33); Albumin Level 3.3 g/dL (3.5-5.2); Alkaline Phosphatase 37 U/L (35-105); Blood Urea Nitrogen 18 mg/dL (8-23); Calcium 8.1 mg/dL (8.5-10.5); Carbon Dioxide 21 mmol/L (22-29); Chloride 107 mmol/L (98-107); Globulin 2.3 g/dL (1.3-4.6); Glucose 109 mg/dL (65-115); Magnesium 1.8 mg/dL (1.7-2.3); Osmolality Calculated 290 mOsm/kg (285-295); Sodium 139 mmol/L (136-145); Total Bilirubin 0.7 mg/dL (0.15-1.2); Total Protein 5.6 g/dL (6.6-8.7)
[2022-06-04 05:11] LABS: NT Pro B Type Natriuretic Pept 400 pg/mL (0-450)
[2022-06-04 05:13] LABS: Anion Gap 14.4 (5-19); Aspartate Amino Transferase 20 U/L (0-32); Potassium 3.4 mmol/L (3.5-5.1)
--- NOTE | 2022-06-04 08:07 | XRR_ITS ---
PROCEDURE INFORMATION: Exam: XR Abdomen Exam date and time: 06/04/2022 8:53 AM Age: 77 years old Clinical indication: Condition or disease; Intestinal condition; Obstruction; Prior surgery; Surgery type: Hysto, bi-lat mastectomy; Patient HX: Cancer (type)--endometrial, breast; Additional info: Asbo TECHNIQUE: Imaging protocol: Radiologic exam of the abdomen. Views: Frontal supine view of the abdomen. 1 View. COMPARISON: CR (ABDOMEN, ) 06/03/2022 10:50 AM FINDINGS: Tubes, catheters and devices: Feeding tube is in satisfactory position. Multiple surgical clips are seen projecting over the mid lower abdomen/pelvis. Gastrointestinal tract: Normal. No bowel dilation. Bones/joints: Degenerative changes of the spine seen. XR/XR KUB portable 85251 IMPRESSION: Nonobstructive bowel gas pattern.
--- NOTE | 2022-06-04 10:32 | PC.CHAP ---
Pastoral Care Encounter/Spiritual Assessment Type of Contact [] Declined training developer visit [] Patient/Family/Request visit [] Outpatient visit [] Follow-up visit [] Physician referral [] Code/Alert [x] Routine visit [] Staff referral [] Actively dying [] Patient sleeping [] Family support [] [] Out of room [] Palliative care [] [x] Receiving care in room [] Pre-surgical visit [] Trauma [] Long length of stay [x] ICU visit [x] Other: physical therapy Relational/Emotional Strength [] Patient feels connected with others/family/visitors/staff [] Distress [] Loneliness/isolation [] Abandonment Spirituality of Patient [] Person of Kayleen [] Attends Orthodox of their Kayleen [] Believes in Prayer [] Reads Bible or Buddhist materials [] There are Spiritual issues to be addressed Peeler Operator Interventions [x] Prayer [] Active listening [] Non-anxious presence [] Spiritual/emotional support [] Crisis/trauma care [] Spiritual counseling [] Bereavement support [] Provided bereavement packet [] Provided Bible/devotional materials [] Provided toy/stuffed animal, coloring book to patient or family member [] Provided Communion [] Anointing/[place] [] Salvation [x] Completed spiritual assessment [] Other: Impact on Illness or Injury [] Angry [] Fearful [] Anxious [] Often cries [] Exhaustion [] Unable to work [] Unable to attend islam [] Unable to walk/stand [] Unable to read [] Unable to drive [] Unable to eat/drink [] Unable to sleep [] Unable to be with family [] Patient intubated [] Other: Summary Time spent with patient
[2022-06-04 10:41] LABS: Partial Thromboplastin Time 75.7 SECONDS (23.9-36.7)
[2022-06-04] MEDS: dextrose 5%-sod chloride 0.9% 1,000 ML 150 ML IV ×2 (12:31→19:36)
--- NOTE | 2022-06-04 12:52 | PM.PN ---
Subjective Subjective: patient reports one episode of passing gas, feeling less bloated, no n/v, no chest pain Vitals/I&O/Wt Last Vital Signs Temp 98.0 F 06/04/22 08:45 Pulse 67 06/04/22 11:48 Resp 16 06/04/22 10:00 BP 137/89 06/04/22 10:00 Pulse Ox 97 06/04/22 11:48 O2 Del Method 06/04/22 11:48 06/03/22 06/04/22 06/04/22 22:59 06:59 14:59 Intake Total 428.916 / 1600.249 920.917 / 2521.166 1170.8 / 1170.8 Output Total 475 / 475 Balance 428.916 / 1600.249 445.917 / 2046.166 1170.8 / 1170.8 Weight last 48 hrs Weight 66.905 kg Weight 65.771 kg Physical Exam Const: COMMON NORMALS: no acute distress Resp: COMMON NORMALS: normal respiratory effort, No retractions, No use of accessory muscles and clear to auscultation bilaterally AUSCULTATION: clear to auscultation bilaterally Cardio: COMMON NORMALS: regular rate, regular rhythm, S1 normal heart sound present and S2 normal heart sound present RATE: regular rate RHYTHM: regular rhythm HEART SOUNDS: S1 normal heart sound present and S2 normal heart sound present GI: OTHER: diminished bowel sounds, no gaurding, no rebound, no rigidity, no distention Extremity: COMMON NORMALS: no pedal edema Data 06/04/22 04:13 06/04/22 04:13 A&P Assessment and plan (1) Small bowel obstruction: High-grade mechanical obstruction of the mid small bowel on CT NGT in place, to low intermittent suction Surgery on-call, Conservative management for now IVF D5NS @ 150 cc/hr (2) Abdominal pain: (3) Atrial fibrillation with RVR: - Continue p.o. Cardizem 30 every 6 hours -Patient's [id number] 2 score is 3 -Continue heparin drip (4) Hypokalemia: Replace electrolyte as (5) Hypomagnesemia: Replace electrolytes (6) Hypertriglyceridemia: (7) Hypoxia: On 2 L, monitor respiratory status closely Plan HTN: Does not typically take medications at home, will add prmn hydralazine Incidentally noted axillary lymahadenopathy : h/o breast ca, will likely need biopsy for further diagnostics plan up out of bed, serial abdominal exam, move to medical floor Attestations Medical Necessity Statement*: patient requires hospitalization for sbo Coding Level of Care Code Acute Code for Chg Fwd Diagnoses Small bowel obstruction K56.609 Abdominal pain R10.9 Atrial fibrillation with RVR I48.91 Hypokalemia E87.6 Hypomagnesemia E83.42 Hypertriglyceridemia E78.1 Hypoxia R09.02
--- NOTE | 2022-06-04 14:35 | PM.PN ---
Subjective Subjective: Patient seen and examined. She reports she is passing flatus now. Her abdominal pain has improved. Denies any nausea or vomiting. Vitals/I&O/Wt Last Vital Signs Temp 98.0 F 06/04/22 08:45 Pulse 62 06/04/22 14:00 Resp 21 H 06/04/22 14:00 BP 137/89 06/04/22 10:00 Pulse Ox 99 06/04/22 14:00 O2 Del Method 06/04/22 11:48 06/03/22 06/04/22 06/04/22 22:59 06:59 14:59 Intake Total 428.916 / 1600.249 920.917 / 2521.166 1279.8909 / 1279.8909 Output Total 475 / 475 Balance 428.916 / 1600.249 445.917 / 2046.166 1279.8909 / 1279.8909 Weight last 48 hrs Weight 147 lb 8 oz Weight 145 lb Physical Exam Narrative: General: No acute distress, awake alert and oriented x3 Abdomen: Soft, nontender, nondistended, no guarding rebound or masses Data 06/04/22 04:13 06/04/22 04:13 A&P Assessment and plan (1) Small bowel obstruction: (2) Axillary adenopathy: (3) History of cancer of left breast: (4) History of bilateral mastectomy: Plan N.p.o. with NG tube to low intermittent wall suction IV fluids Await return of bowel function Recommend bilateral mammograms and ultrasound of right axilla with core needle biopsy as an outpatient Conservative therapy for now. She does not have return of bowel function the next few days she will need at least a diagnostic laparoscopy. Medical management per hospitalist Attestations Medical Necessity Statement*: Patient requires multiple more nights in the hospital until resolution of her small bowel obstruction Coding Level of Care Code Acute Code for Chg Fwd Diagnoses Small bowel obstruction K56.609 Axillary adenopathy R59.0 History of cancer of left breast Z85.3 History of bilateral mastectomy Z90.13
--- NOTE | 2022-06-04 15:37 | PC.NURSE ---
Pt ambulated Pt ambulated in unit for 30min with NG clamped. Pt back up to chair with NG placed back on LIS.
[2022-06-04 17:42] LABS: Partial Thromboplastin Time 55.4 SECONDS (23.9-36.7)
--- NOTE | 2022-06-04 17:50 | PC.NURSE ---
Patient transferred to CSU at approximately 1750.
--- NOTE | 2022-06-04 21:34 | PC.NURSE ---
Patient is having anxiety about NG tube, stating that she can't breathe but 02 monitor shows patient at 99-100. Offered patient lorazepam, which she declined. Physician notified.
[2022-06-04 23:22] LABS: Partial Thromboplastin Time 25.9 SECONDS (23.9-36.7)
[2022-06-04] MEDS: heparin drip 25,000 UNIT/500 ML PREMIX 17 UNIT IV (23:41)
[2022-06-05] VITALS (25 sets, daily range): BP systolic 111–144; BP diastolic 51–87; PULSE 57–80; RESP 14–31; TEMP 36.6–36.9; O2SAT 92–100
[2022-06-05] MEDS: heparin 5,000 unit/mL INJ 1 mL IV (00:17)
--- NOTE | 2022-06-05 03:57 | PC.NURSE ---
Patient continues to be very upset about NGT. She believes the physicians are not listening to her and describes the NGT as torture.
--- NOTE | 2022-06-05 04:47 | PC.NURSE ---
Patient's NGT fell out .
[2022-06-05] MEDS: dextrose 5%-sod chloride 0.9% 1,000 ML 150 ML IV ×3 (04:49→17:13)
[2022-06-05] MEDS: dilTIAZem 30 mg Tablet PO ×3 (05:19→17:13)
--- NOTE | 2022-06-05 05:37 | PC.NURSE ---
Spoke with Dr. Bernal about patient's NGT falling out and he said it was OK to leave it out until surgery evaluated her today as long as there was no emesis. If there was any emesis, nurse is to put NGT back in.
[2022-06-05 06:23] LABS: Basophils % 0.4 %; Eosinophils # 0.1 10^3/uL (0.0-0.8); Hematocrit 34.3 % (37.0-47.0); Lymphocytes # 0.9 10^3/uL (0.8-4.8); Lymphocytes % 16.6 %; Mean Corpuscular HGB Conc 32.1 g/dL (30.0-36.0); Mean Corpuscular Hemoglobin 32.1 pg (28.0-34.0); Mean Platelet Volume 9.4 fL (7.4-10.4); Monocytes # 0.5 10^3/uL (0.2-0.9); Monocytes % 9.4 %; Neutrophils # 3.94 10^3/uL (1.8-7.7); Neutrophils % 71.1 %; Nucleated Red Blood Cells % 0 %; Platelet Count 199 10^3/cmm (130-400); Red Blood Count 3.43 10^6/uL (4.1-5.3); Red Cell Distribution Width 13.2 % (12.1-15.1); White Blood Count 5.5 10^3/uL (4.0-10.0)
[2022-06-05 06:33] LABS: INR 1.12 (0.8-1.2)
[2022-06-05 06:43] LABS: Alanine Aminotransferase 13 U/L (0-33); Albumin Level 3.5 g/dL (3.5-5.2); Alkaline Phosphatase 40 U/L (35-105); Aspartate Amino Transferase 18 U/L (0-32); Blood Urea Nitrogen 8 mg/dL (8-23); Calcium 7.8 mg/dL (8.5-10.5); Carbon Dioxide 25 mmol/L (22-29); Chloride 107 mmol/L (98-107); Globulin 2.3 g/dL (1.3-4.6); Glucose 111 mg/dL (65-115); Magnesium 1.8 mg/dL (1.7-2.3); Osmolality Calculated 289 mOsm/kg (285-295); Phosphorus 2.4 mg/dL (2.5-4.5); Sodium 140 mmol/L (136-145); Total Bilirubin 0.7 mg/dL (0.15-1.2); Total Protein 5.8 g/dL (6.6-8.7)
[2022-06-05 06:53] LABS: Partial Thromboplastin Time 158.6 SECONDS (23.9-36.7)
[2022-06-05 06:54] LABS: NT Pro B Type Natriuretic Pept 217 pg/mL (0-450)
--- NOTE | 2022-06-05 10:24 | PM.PN ---
Subjective Subjective: Patient seen and examined. She reports she is passing flatus now. Her abdominal pain has improved. Denies any nausea or vomiting. She pulled out her NG tube overnight Vitals/I&O/Wt Last Vital Signs Temp 98.5 F 06/05/22 07:26 Pulse 72 06/05/22 07:34 Resp 19 H 06/05/22 07:34 BP 131/62 06/05/22 07:34 Pulse Ox 98 06/05/22 07:34 O2 Del Method 06/05/22 07:34 06/04/22 06/05/22 06/05/22 22:59 06:59 14:59 Intake Total 1156.367 / 2436.2579 1007.65 / 3443.9079 502.5 / 502.5 Balance 1156.367 / 2436.2579 1007.65 / 3443.9079 502.5 / 502.5 Physical Exam Narrative: General: No acute distress, awake alert and oriented x3 Abdomen: Soft, nontender, nondistended, no guarding rebound or masses Data 06/05/22 06:03 06/05/22 06:03 A&P Assessment and plan (1) Small bowel obstruction: (2) Axillary adenopathy: (3) History of cancer of left breast: (4) History of bilateral mastectomy: Plan Clear liquids IV fluids Await return of bowel function Recommend bilateral mammograms and ultrasound of right axilla with core needle biopsy as an outpatient Conservative therapy for now. She does not have return of bowel function the next few days she will need at least a diagnostic laparoscopy. Medical management per hospitalist Attestations Medical Necessity Statement*: Patient requires multiple more nights in the hospital until resolution of her small bowel obstruction Coding Level of Care Code Acute Code for Chg Fwd Diagnoses Small bowel obstruction K56.609 Axillary adenopathy R59.0 History of cancer of left breast Z85.3 History of bilateral mastectomy Z90.13
--- NOTE | 2022-06-05 10:54 | PM.PN ---
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 Vitals/I&O/Wt Last Vital Signs Temp 98.5 F 06/05/22 07:26 Pulse 72 06/05/22 07:34 Resp 19 H 06/05/22 07:34 BP 131/62 06/05/22 07:34 Pulse Ox 98 06/05/22 07:34 O2 Del Method 06/05/22 07:34 06/04/22 06/05/22 06/05/22 22:59 06:59 14:59 Intake Total 1156.367 / 2436.2579 1007.65 / 3443.9079 502.5 / 502.5 Balance 1156.367 / 2436.2579 1007.65 / 3443.9079 502.5 / 502.5 Physical Exam Const: COMMON NORMALS: no acute distress and patient oriented x3 Resp: COMMON NORMALS: normal respiratory effort, No retractions, No use of accessory muscles and clear to auscultation bilaterally AUSCULTATION: clear to auscultation bilaterally Cardio: COMMON NORMALS: regular rate, regular rhythm, S1 normal heart sound present and S2 normal heart sound present RATE: regular rate RHYTHM: regular rhythm HEART SOUNDS: S1 normal heart sound present and S2 normal heart sound present GI: OTHER: Abdomen soft, slightly distended, decreased bowel sounds, no guarding, no rebound, no rigidity Extremity: COMMON NORMALS: no pedal edema Neuro: COMMON NORMALS: patient oriented x3 Psych: COMMON NORMALS: mental status grossly normal Data 06/05/22 06:03 06/05/22 06:03 A&P Assessment and plan (1) Small bowel obstruction: High-grade mechanical obstruction of the mid small bowel on CT NG tube out by patient Currently on clears Surgery on-call, Conservative management for now IVF D5NS @ 150 cc/hr (2) Abdominal pain: (3) Atrial fibrillation with RVR: - Continue p.o. Cardizem 30 every 6 hours -Patient's [id number] 2 score is 3 -Continue heparin drip, switch to Eliquis on discharge (4) Hypokalemia: Replace electrolyte as (5) Hypomagnesemia: Replace electrolytes (6) Hypertriglyceridemia: (7) Hypoxia: On 2 L, monitor respiratory status closely Plan HTN: Does not typically take medications at home, will add prmn hydralazine Incidentally noted axillary lymahadenopathy : h/o breast ca, will likely need biopsy for further diagnostics plan up out of bed, serial abdominal exam, came in for med surge, currently on clears Attestations Medical Necessity Statement*: Patient requires hospitalization for A. fib with RVR, currently normal sinus rhythm, with high-grade small bowel obstruction, conservative only managed Coding Level of Care Code Acute Code for Chg Fwd Diagnoses Small bowel obstruction K56.609 Abdominal pain R10.9 Atrial fibrillation with RVR I48.91 Hypokalemia E87.6 Hypomagnesemia E83.42 Hypertriglyceridemia E78.1 Hypoxia R09.02
[2022-06-05 17:27] LABS: Partial Thromboplastin Time 57.6 SECONDS (23.9-36.7)
--- NOTE | 2022-06-05 18:34 | PC.NURSE ---
Pt stated Hey I finally did it I had a bowel movement, but I flushed it. BM was not seen or assessed by nursing staff. Pt was instructed after BM not to flush and to call staff.
[2022-06-05 19:08] LABS: Partial Thromboplastin Time 65.8 SECONDS (23.9-36.7)
[2022-06-06] VITALS (7 sets, daily range): BP systolic 115–118; BP diastolic 61–72; PULSE 63–73; RESP 0–19; TEMP 36.5–37.2; O2SAT 95–98
[2022-06-06 03:14] LABS: Basophils % 0.6 %; Eosinophils # 0.1 10^3/uL (0.0-0.8); Eosinophils % 2.2 %; Hematocrit 31.7 % (37.0-47.0); Hemoglobin 10.1 g/dL (11.5-15.3); Lymphocytes # 1.2 10^3/uL (0.8-4.8); Lymphocytes % 24.9 %; Mean Corpuscular HGB Conc 31.9 g/dL (30.0-36.0); Mean Corpuscular Hemoglobin 31.5 pg (28.0-34.0); Mean Corpuscular Volume 98.8 fl (81-99); Mean Platelet Volume 9.8 fL (7.4-10.4); Monocytes # 0.5 10^3/uL (0.2-0.9); Monocytes % 10.4 %; Neutrophils % 61.5 %; Nucleated Red Blood Cells % 0 %; Platelet Count 203 10^3/cmm (130-400); Red Blood Count 3.21 10^6/uL (4.1-5.3); Red Cell Distribution Width 13.2 % (12.1-15.1); White Blood Count 4.9 10^3/uL (4.0-10.0)
[2022-06-06 03:37] LABS: Partial Thromboplastin Time 96.7 SECONDS (23.9-36.7)
[2022-06-06 03:41] LABS: Alanine Aminotransferase 13 U/L (0-33); Albumin Level 3.3 g/dL (3.5-5.2); Alkaline Phosphatase 40 U/L (35-105); Anion Gap 11.3 (5-19); Aspartate Amino Transferase 15 U/L (0-32); Blood Urea Nitrogen 4 mg/dL (8-23); Calcium 7.9 mg/dL (8.5-10.5); Carbon Dioxide 25 mmol/L (22-29); Chloride 111 mmol/L (98-107); Globulin 2.3 g/dL (1.3-4.6); Glucose 92 mg/dL (65-115); Magnesium 1.7 mg/dL (1.7-2.3); Osmolality Calculated 295 mOsm/kg (285-295); Phosphorus 2.8 mg/dL (2.5-4.5); Potassium 3.3 mmol/L (3.5-5.1); Sodium 144 mmol/L (136-145); Total Bilirubin 0.6 mg/dL (0.15-1.2); Total Protein 5.6 g/dL (6.6-8.7)
[2022-06-06] MEDS: dilTIAZem 30 mg Tablet PO ×2 (06:09→11:35)
[2022-06-06] MEDS: lidocaine 1% 5 ML in potassium chloride premix 100 ML 52.5 ML IV (09:27)
[2022-06-06 10:22] LABS: Partial Thromboplastin Time 60.6 SECONDS (23.9-36.7)
--- NOTE | 2022-06-06 10:27 | PM.DCS ---
Discharge Providers Date of Admission: 06/02/22 23:15 Date of Discharge: June 06, 2022 Attending Provider at Admission: Sheela Doll MD Attending Provider at Discharge: Quan Perea MD Diagnoses at Discharge Discharge Diagnosis (1) Small bowel obstruction: Status: Acute (2) Abdominal pain: Status: Acute (3) Atrial fibrillation with RVR: Status: Acute (4) Hypokalemia: Status: Acute (5) Hypomagnesemia: Status: Acute (6) Hypertriglyceridemia: Status: Acute (7) Hypoxia: Status: Acute Reason for Visit Reason for Visit: abd pain, n/v, no bowel movement in 4 days, pain Hospital Course Hospital Course This is a 77-year-old female with a past medical history of breast cancer, who presents to [facility] due to abdominal pain, distention, lack of stooling for the last 4 days Patient admitted to [facility] for high-grade mechanical bowel obstruction, managed conservatively, with NG tube, bowel rest, IV fluids. Likely secondary to surgical adhesions, as she has had a prior history of endometrial cancer status post hysterectom., overall patient's clinical condition improved, she passed gas, had stooling, tolerated diet advancement. She was discharged with instructions to slowly advance diet at home, drink plenty of electrolyte balanced fluids, stool softeners. If she were to have recurrent abdominal pain, lack of stooling, abdominal distention go to the emergency room Patient was found to have axillary lymphadenopathy, history of breast cancer, will need to have a mammogram and axillary lymph node biopsy as outpatient. Please follow-up with primary care provider for mammography. Please follow-up with general surgery for lymph node biopsy. Patient developed A-fib with RVR during hospitalization, requiring ICU admission for 24 hours requiring Cardizem drip, transition to p.o. Cardizem she converted to normal sinus rhythm. Her [id number] score was 3. Managed on heparin drip, hemoglobin remained stable, no bloody or black stools. Discharged on Cardizem, p.o. Eliquis with close follow-up with cardiology as outpatient Physical Exam Const: COMMON NORMALS: no acute distress and patient oriented x3 Resp: COMMON NORMALS: normal respiratory effort, No retractions, No use of accessory muscles and clear to auscultation bilaterally AUSCULTATION: clear to auscultation bilaterally Cardio: COMMON NORMALS: regular rate, regular rhythm, S1 normal heart sound present and S2 normal heart sound present RATE: regular rate RHYTHM: regular rhythm HEART SOUNDS: S1 normal heart sound present and S2 normal heart sound present GI: COMMON NORMALS: Normal to inspection, nondistended, normoactive bowel sounds present and non-tender Extremity: COMMON NORMALS: no pedal edema Neuro: COMMON NORMALS: patient oriented x3 Psych: COMMON NORMALS: mental status grossly normal Discharge Data Studies Completed and Pending Completed Studies During Hospitalization Category Date Time Status CT abdomen pelvis w con* [id number] Stat Cat Scan 06/02/22 21:36 Completed XR KUB portable [id number] Routine Exams 06/04/22 08:07 Completed XR KUB portable [id number] Stat Exams 06/03/22 08:31 Completed CV. echo complete* [id number] Routine Ultrasound 06/03/22 10:42 Completed Pending at discharge Category Date Time Status Platelet Count Q2D Lab 06/07/22 04:00 Ordered Radiology Impressions Abdomen/Pelvis CT 06/02/22 21:36 IMPRESSION: 1. High-grade mechanical obstruction of the mid small bowel. The cause is not apparent. 2. Right axillary lymphadenopathy, likely malignant. 3. Incidental findings above. ADDENDUM: 06/02/22 1992 THIS REPORT CONTAINS FINDINGS THAT MAY BE CRITICAL TO PATIENT CARE. The findings were verbally communicated via telephone conference with Arron Ayers at 11:01 PM [employer]ENDER FINISHER on 06/02/2022. The findings were acknowledged and understood. KUB X-Ray 06/04/22 08:07 IMPRESSION: Nonobstructive bowel gas pattern. Laboratory Results WBC 4.9 10^3/uL (4.0-10.0) 06/06/22 02:35 RBC 3.21 10^6/uL (4.1-5.3) L 06/06/22 02:35 Hgb 10.1 g/dL (11.5-15.3) L 06/06/22 02:35 Hct 31.7 % (37.0-47.0) L 06/06/22 02:35 MCV 98.8 fl (81-99) 06/06/22 02:35 MCH 31.5 pg (28.0-34.0) 06/06/22 02:35 MCHC 31.9 g/dL (30.0-36.0) 06/06/22 02:35 RDW 13.2 % (12.1-15.1) 06/06/22 02:35 Plt Count 203 10^3/cmm (130-400) 06/06/22 02:35 MPV 9.8 fL (7.4-10.4) 06/06/22 02:35 Neut % (Auto) 61.5 % 06/06/22 02:35 Lymph % (Auto) 24.9 % 06/06/22 02:35 Otero % (Auto) 10.4 % 06/06/22 02:35 Eos % (Auto) 2.2 % 06/06/22 02:35 Baso % (Auto) 0.6 % 06/06/22 02:35 Neut # (Auto) 3.00 10^3/uL (1.8-7.7) 06/06/22 02:35 Lymph # (Auto) 1.2 10^3/uL (0.8-4.8) 06/06/22 02:35 Otero # (Auto) 0.5 10^3/uL (0.2-0.9) 06/06/22 02:35 Eos # (Auto) 0.1 10^3/uL (0.0-0.8) 06/06/22 02:35 Baso # (Auto) 0.0 10^3/uL (0.0-0.1) 06/06/22 02:35 Nucleated RBC % (auto) 0 % 06/06/22 02:35 Nucleated RBCs # 0.0 /100WBC 06/06/22 02:35 PT 14.70 SECONDS (12.1-14.9) 06/05/22 06:03 INR 1.12 (0.8-1.2) 06/05/22 06:03 APTT 60.6 SECONDS (23.9-36.7) H 06/06/22 09:56 Sodium 144 mmol/L (136-145) 06/06/22 02:35 Potassium 3.3 mmol/L (3.5-5.1) L 06/06/22 02:35 Chloride 111 mmol/L (98-107) H 06/06/22 02:35 Carbon Dioxide 25 mmol/L (22-29) 06/06/22 02:35 Anion Gap 11.3 (5-19) 06/06/22 02:35 BUN 4 mg/dL (8-23) L 06/06/22 02:35 Creatinine 0.6 mg/dL (0.5-0.9) 06/06/22 02:35 GFR Calculation Not Reportable 06/06/22 02:35 Glucose 92 mg/dL (65-115) 06/06/22 02:35 Estimat Average Glucose 111 06/03/22 05:15 Hemoglobin A1c 5.5 % (4.0-6.0) 06/03/22 05:15 Calculated Osmolality 295 mOsm/kg (285-295) 06/06/22 02:35 Lactic Acid 1.4 mmol/L (0.5-2.2) 06/02/22 22:03 Lactate 1.7 mmol/L (0.5-2.2) 06/03/22 11:01 Calcium 7.9 mg/dL (8.5-10.5) L 06/06/22 02:35 Phosphorus 2.8 mg/dL (2.5-4.5) 06/06/22 02:35 Magnesium 1.7 mg/dL (1.7-2.3) 06/06/22 02:35 Total Bilirubin 0.6 mg/dL (0.15-1.2) 06/06/22 02:35 AST 15 U/L (0-32) 06/06/22 02:35 ALT 13 U/L (0-33) 06/06/22 02:35 Alkaline Phosphatase 40 U/L (35-105) 06/06/22 02:35 Troponin T Baseline 8 ng/L (0-10) 06/03/22 05:15 Troponin T 120 Minute 8.82 ng/L (0-10) 06/03/22 11:01 Delta Troponin T 0.82 ABS# (0-10) 06/03/22 11:01 Troponin T Hi Sens 6Hr 9.59 ng/L (0-10) 06/03/22 15:25 Troponin T Hi Sens 6Hr Delta 1.59 ng/L (0-12) 06/03/22 15:25 NT-Pro-B Natriuret Pep 217 pg/mL (0-450) 06/05/22 06:03 Total Protein 5.6 g/dL (6.6-8.7) L 06/06/22 02:35 Albumin 3.3 g/dL (3.5-5.2) L 06/06/22 02:35 Globulin 2.3 g/dL (1.3-4.6) 06/06/22 02:35 Triglycerides 216 mg/dL (0-150) H 06/03/22 05:15 Cholesterol 212 mg/dL (0-200) H 06/03/22 05:15 LDL Cholesterol, Calc 120 mg/dL (50-129) 06/03/22 05:15 HDL Cholesterol 49 mg/dL (60-100) L 06/03/22 05:15 LDL/HDL Ratio 2.45 RATIO (0.00-3.22) 06/03/22 05:15 Cholesterol/HDL Ratio 4.33 mg/dL (0.0-4.40) 06/03/22 05:15 Lipase 9 U/L (13-60) L 06/02/22 21:43 Carcinoembryonic Ag 0.7 ng/mL (0.0-4.7) 06/03/22 05:15 TSH 1.66 uIU/mL (0.27-4.20) 06/03/22 05:15 Urine Color Yellow (Yellow) 06/02/22 21:55 Urine Appearance Clear (CLEAR) 06/02/22 21:55 Urine pH 5 (5-7) 06/02/22 21:55 Ur Specific Meraux 1.025 (1.005-1.030) 06/02/22 21:55 Urine Protein 1+ (Negative) H 06/02/22 21:55 Urine Glucose (UA) Norm (Normal) 06/02/22 21:55 Urine Ketones 1+ (Negative) H 06/02/22 21:55 Urine Blood 2+ (Negative) H 06/02/22 21:55 Urine Nitrate Negative (Negative) 06/02/22 21:55 Urine Bilirubin Neg (Negative) 06/02/22 21:55 Urine Urobilinogen Neg mg/dL (Negative) 06/02/22 21:55 Ur Leukocyte Esterase Negative (Negative) 06/02/22 21:55 Urine RBC 5-10 /hpf (0-2) H 06/02/22 21:55 Urine WBC 0-4 /hpf (0-5) H 06/02/22 21:55 Ur Squamous Epith Cells 0-4 /hpf (0-5) H 06/02/22 21:55 Amorphous Sediment Not Reportable 06/02/22 21:55 Urine Bacteria Trace /hpf (NONE) 06/02/22 21:55 Urine Mucus Trace /hpf 06/02/22 21:55 Vitals Last Vital Signs Temp 97.7 F 06/06/22 03:41 Pulse 69 06/06/22 06:09 Resp 19 H 06/06/22 03:41 BP 116/72 06/06/22 06:09 Pulse Ox 95 06/06/22 03:41 O2 Del Method 06/05/22 16:00 Discharge Plan Discharge Patient Disposition: Home Condition: Stable Prescriptions: New hydrocodone-acetaminophen 5-325 mg tablet 1 tab PO Q8H PRN (Reason: pain) 5 Days Qty: 15 0RF ondansetron 4 mg tablet,disintegrating 4 mg PO Q8H PRN (Reason: nausea and vomiting) Qty: 15 0RF docusate sodium [Colace] 100 mg capsule 100 mg PO BID 30 Days Qty: 60 0RF famotidine [Pepcid] 40 mg tablet 40 mg PO BID 5 Days Qty: 10 0RF Eliquis 5 mg tablet 5 mg PO BID 30 Days Qty: 60 0RF Cardizem LA 120 mg tablet extended release 24 hr 120 mg PO DAILY 30 Days Qty: 30 0RF polyethylene glycol 3350 [Miralax] 17 gram powder in packet 17 g PO DAILY PRN (Reason: constipation) 30 Days Qty: 30 0RF Discharge Orders: Discharge Order (Routine); Ordered 06/06/22 Ordered By: Quan Perea Referrals: Osmel Jerome [Referring] - 1-3 days Delfino Beckett DO [Physician] - 2 weeks Ching Marquez MD [Physician] - 2 weeks Discharge Diet: As Directed Discharge Activity: Resume usual activity Patient Instructions: Hematuria (ED), Abdominal Pain (ED), Opioid Safety Activity Restrictions/Additional Instructions: -For your atrial fibrillation I have discharged you on Cardizem -For your atrial fibrillation I discharged on Eliquis 5 mg twice daily -Eliquis is a blood thinner, if you develop bloody or black stools, have a fall, with development of a significant bruise please go to the emergency room as you can develop a life-threatening bleed -Please see your primary care provider in a week to recheck your hemoglobin -You are found to have right axillary lymphadenopathy, with concerns for possible malignancy, please follow-up with general surgery for consideration of mammography and biopsy -Please follow-up with your primary care provider in 1 week -See general surgery in 2 weeks -For your bowel obstruction, please slowly advance diet -If you develop worsening abdominal pain, lack of stooling, go to the emergency room Thank you for visiting the emergency department. You were seen and evaluated for abdominal pain. The cause of your symptoms does not appear to need hospitalization at this time. I recommend clear liquid diet and slowly advance with bland food as tolerated. Please follow-up with your primary care provider. Return to the emergency department for uncontrolled symptoms or anything else that you are concerned about and feel needs emergency department evaluation. Discharge Attestations Time Spent in Discharge Care*: greater than 30 min Quality Metrics Clinical Quality Measures [ No reported AMI, CVA or VTE this stay] Coding Level of Care Code Acute Chg DC note Exam Detailed Diagnoses Small bowel obstruction K56.609 Abdominal pain R10.9 Atrial fibrillation with RVR I48.91 Hypokalemia E87.6 Hypomagnesemia E83.42 Hypertriglyceridemia E78.1 Hypoxia R09.02
--- NOTE | 2022-06-06 11:54 | PM.PN ---
Subjective Subjective: Patient reports no abdominal pain today. No nausea or vomiting. Positive flatus and had 3 small bowel movements Vitals/I&O/Wt Last Vital Signs Temp 97.7 F 06/06/22 03:41 Pulse 63 06/06/22 10:00 Resp 0 L 06/06/22 10:00 BP 116/72 06/06/22 10:00 Pulse Ox 95 06/06/22 10:00 O2 Del Method 06/05/22 16:00 06/05/22 06/06/22 06/06/22 22:59 06:59 14:59 Intake Total 590 / 2601.5909 1440 / 4041.5909 Balance 590 / 2601.5909 1440 / 4041.5909 Physical Exam Narrative: General: No acute distress, awake alert and oriented x3 Abdomen: Soft, nontender, nondistended, no guarding rebound or masses Data 06/06/22 02:35 06/06/22 02:35 A&P Assessment and plan (1) Small bowel obstruction: (2) Axillary adenopathy: (3) History of cancer of left breast: (4) History of bilateral mastectomy: Plan Soft diet IV fluids Surgically stable for discharge Recommend bilateral mammograms and ultrasound of right axilla with core needle biopsy as an outpatient Conservative therapy for now. She does not have return of bowel function the next few days she will need at least a diagnostic laparoscopy. Medical management per hospitalist Follow-up with me in 2 weeks Attestations Medical Necessity Statement*: Further hospitalization per hospitalist Coding Level of Care Code Acute Code for Chg Fwd Diagnoses Small bowel obstruction K56.609 Axillary adenopathy R59.0 History of cancer of left breast Z85.3 History of bilateral mastectomy Z90.13
[2022-06-06] MEDS: apixaban 5 mg Tablet PO (12:03)
--- NOTE | 2022-06-06 13:52 | PC.NURSE ---
discharge instructions given and explained.pt verb understanding of instructions.discharged via w/c to exit.cab to take pt home.
== END 2022-06-06 13:55 | disposition home or self-care (01) | DRG 390 ==
LOC: ER 23:09 → MEDSURG 23:32 → ICU 06-04 00:58 → CSU 06-04 17:39 → ICU 06-04 17:42 → CSU 06-04 17:52
PROVIDERS: Internal Medicine; Nurse Practitioner Family; Admitting Provider Student in an Organized Health Care Education/Training Program; Emergency Provider Emergency Medicine; Visit Provider Family Medicine
DX: K56.609 Unspecified intestinal obstruction, unspecified as to partial versus complete obstruction (principal); I48.91 Unspecified atrial fibrillation; E87.6 Hypokalemia; E83.42 Hypomagnesemia; E78.1 Pure hyperglyceridemia; Z85.3 Personal history of malignant neoplasm of breast; Z85.42 Personal history of malignant neoplasm of other parts of uterus; Z90.710 Acquired absence of both cervix and uterus; R59.0 Localized enlarged lymph nodes; Z88.2 Allergy status to sulfonamides; M17.0 Bilateral primary osteoarthritis of knee; Z90.13 Acquired absence of bilateral breasts and nipples; I10 Essential (primary) hypertension
CPT/HCPCS: 36415; 74018; 74177; 80053; 80061; 81001; 82378; 83036; 83605; 83690; 83735; 83880; 84100; 84443; 84484; 85025; 85610; 85730; 93005; 93306; 96372; 96374; 96375; 96376; 97116; 97161; 99285; J0153; J1644; J1650; J2250; J2270; J2405; J2997; J3475; J3480; J3490; J7030; J7042; Q9967

== ENCOUNTER → 2023-03-01 16:18 | Outpatient (BNVA) | payer MEDICARE, SELFPAY | PROVIDERS: PCP Family Medicine; Visit Provider Nurse Practitioner Family | DX: R39.9 Unspecified symptoms and signs involving the genitourinary system (principal); N39.0 Urinary tract infection, site not specified; J20.8 Acute bronchitis due to other specified organisms; B96.89 Other specified bacterial agents as the cause of diseases classified elsewhere; N30.00 Acute cystitis without hematuria; R20.0 Anesthesia of skin; R20.2 Paresthesia of skin; M25.471 Effusion, right ankle | CPT/HCPCS: 81000; 87086 ==

== ENCOUNTER 2023-04-04 22:32 | Observation (INO) | payer MEDICARE, SELFPAY ==
[2023-04-04 22:33] VITALS: BMI 26.2
--- NOTE | 2023-04-04 22:33 | CTR_ITS ---
PROCEDURE INFORMATION: Exam: CT Abdomen And Pelvis Without Contrast Exam date and time: 04/04/2023 11:55 PM Age: 78 years old Clinical indication: Abdominal pain; Localized; Lower; Patient HX: Patient says she jsust finished antibiotics for UTI. Vomitting; Additional info: Abd pain, n/v, HX of diveritculitis TECHNIQUE: Imaging protocol: Computed tomography of the abdomen and pelvis without contrast. Radiation optimization: All CT scans at this facility use at least one of these dose optimization techniques: automated exposure control; mA and/or kV adjustment per patient size (includes targeted exams where dose is matched to clinical indication); or iterative reconstruction. REPORTING DATA: Count of CT and Cardiac NM exams in prior 12 months: This patient has received [address] and 0 known cardiac nuclear medicine studies in the 12 months prior to the current study. COMPARISON: CT abdomen pelvis w con* [id number] 06/02/2022 10:32 PM RADIATION DOSE METRICS: Total DLP (mGy-cm): 497.47 FINDINGS: Lungs: The visualized lung wallace show mild bibasilar atelectasis. Liver: The liver is normal in size and homogeneous density. Gallbladder and bile ducts: There is increased density in the gallbladder that may be secondary to sludge or small gallstones. There is no pericholecystic fluid. No gallbladder wall thickening. Pancreas: The pancreas is normal. Spleen: The spleen is normal in size and density. There are multiple punctate granulomas in the spleen. Adrenal glands: The adrenal glands are normal. Kidneys and ureters: There is no hydronephrosis. No renal or obstructive ureteral calculi are identified. Stomach and bowel: There is high-grade small bowel obstruction with small bowel feces sign. The transition point is at a mesenteric whirl in the upper pelvis (3/130-170; 5/42-66). There is some residual stool and gas in the colon. There is mild diverticulosis of the distal colon without acute diverticulitis. Appendix: No evidence of appendicitis. Intraperitoneal space: No evidence of free fluid or free air. Vasculature: There is mild atherosclerotic calcification of the abdominal aorta and its branches without aneurysm. Lymph nodes: Nonenlarged bilateral inguinal lymph nodes, likely reactive. Urinary bladder: There is mild bladder wall thickening. Reproductive: Unremarkable as visualized. Bones/joints: Multilevel degenerative disc disease without significant spinal canal stenosis. Grade 1 anterolisthesis of L4 without associated fracture and presumably degenerative related. Degenerative changes of the hips, worse the left. Soft tissues: Bilateral breast prosthesis with peripheral calcification. CT/CT abdomen pelvis wo con [id number] IMPRESSION: 1. High-grade small bowel obstruction with a transition point at a mesenteric whirl in the upper pelvis. 2. Bladder wall thickening suggesting cystitis, incomplete distention or chronic outflow obstruction. 3. Mild diverticulosis of the distal colon without diverticulitis. 4. Increased density in the gallbladder that may represent sludge and/or gallstones. No evidence of cholecystitis.
[2023-04-04 22:37] VITALS: BP 169/91; PULSE 78; RESP 18; TEMP 36.8; O2SAT 96
--- NOTE | 2023-04-04 22:45 | ED_ITS ---
HPI - Abdominal Pain 2 General: Chief Complaint: Abdominal Pain Stated Complaint: N/V Time Seen by Provider: 04/04/23 22:32 History of Present Illness: 78-year-old female comes in today for co mplaints of nausea and vomiting for the last 2 days. Patient does report bowel movements with the last 1 being today. Patient denies any diarrhea. P patient reports symptoms starting yesterday morning and persisted throughout the day and today. Patient does have a history of breast cancer, hysterectomy, bowel obstruction, diverticulitis, atrial fibs. Patient does take apixaban and diltiazem for her atrial fibs. Patient appears in no pain. Patient appears nontoxic. Associated Symptoms: Reports nausea and vomiting; Denies fever(s) Review of Systems 2 General: Reports: 10 or more systems reviewed and unremarkable except in HPI and below Const: Denies: fever(s) Card: Denies: chest pain Resp: Denies: dyspnea GI: Reports: nausea and vomiting : Reports: urinary frequency Musc: Denies: neck pain or back pain PFSH ED 2 PFSH: Medical History History of cancer of left breast Osteoarthritis of knees, bilateral Surgical History History of bilateral mastectomy History of total abdominal hysterectomy and bilateral salpingo-oophorectomy Social History Smoking and tobacco/nicotine status: never used tobacco/nicotine Alcohol intake: never Substance/Drug Use: never Physical Exam 2 Const: COMMON NORMALS: alert HENMT: COMMON NORMALS: normocephalic HEAD & SCALP: normocephalic MOUTH: Normal oral and palatal mucosa present Neck/C-Spine: COMMON NORMALS: full ROM and no meningeal signs Resp: COMMON NORMALS: normal respiratory effort and clear to auscultation bilaterally AUSCULTATION: clear to auscultation bilaterally Cardio: COMMON NORMALS: regular rate, S1 normal heart sound present and S2 normal heart sound present RATE: regular rate HEART SOUNDS: S1 normal heart sound present and S2 normal heart sound present GI: COMMON NORMALS: Soft to palpation AUSCULTATION: Yes Hypoactive bowel sounds present PALPATION: Yes Soft to palpation, Yes Tenderness to palpation present (GI) (Generalized), No Guarding due to palpation present (GI) and No Rebound tenderness present Back/Pelvis: COMMON NORMALS: thoracic and lumbar spine normal to inspection Extremity: COMMON NORMALS: full ROM Neuro: SENSORIUM/ORIENTATION: Yes alert MENINGEAL SIGNS: Yes no meningeal signs Skin: COMMON NORMALS: turgor normal GENERAL SKIN EXAM: turgor normal Course 2 ED course: 2345, patient given 4 mg of Zofran repea t dose for persistent nausea and dry heaves. 0027, patient given 10 mg of Reglan for persistent nausea and feeling of throwing up. CBC and CMP were normal. Awaiting CT abdomen report. Vital Signs: Vital signs: Vital Signs Temperature 98.2 F 04/04/23 22:37 Pulse Rate 57 L 04/05/23 00:23 Respiratory Rate 18 04/05/23 00:23 Blood Pressure 155/84 04/05/23 00:23 Pulse Oximetry 98 04/05/23 00:23 MDM - Abdominal Pain Medical Decision Making 78-year-old female comes in today with persistent nausea and vomiting x 2 days. Patient received 4 mg of Zofran in route and 250 of IV fluids. Patient is alert and oriented and responds appropriate to questions. On exam patient's heart rate is regular rate with normal stones. Abdomen soft with decreased bowel sounds. Generalized tenderness is noted without any rebound tenderness or guarding. No CVA tenderness. No pain along the spine. No edema is noted in the extremities. Differential diagnosis includes but not limited to bowel obstruction, diverticulitis, gastroenteritis, urinary tract infection, unlikely ACS. CBC and CMP was unremarkable. Patient had persistent nausea and vomiting. CT of the abdomen pelvis was performed and noted a small bowel obstruction. Nasogastric tube was ordered to be placed. Patient was admitted to hospitalist services Dr. Bernal for further evaluation and treatment whom agreed to plan. Patient needs IV fluids, consultation with surgeon, Lab Data 04/04/23 22:49 04/04/23 22:49 Labs/Radiology: Radiology Impressions Abdomen/Pelvis CT 04/04/23 22:33 IMPRESSION: 1. High-grade small bowel obstruction with a transition point at a mesenteric whirl in the upper pelvis. 2. Bladder wall thickening suggesting cystitis, incomplete distention or chronic outflow obstruction. 3. Mild diverticulosis of the distal colon without diverticulitis. 4. Increased density in the gallbladder that may represent sludge and/or gallstones. No evidence of cholecystitis. ADDENDUM: 04/05/23 0100 THIS REPORT CONTAINS FINDINGS THAT MAY BE CRITICAL TO PATIENT CARE. The findings were verbally communicated via telephone conference with CHYNA LATIF at 12:58 AM FLAT CLOTHIER on 04/05/2023. The findings were acknowledged and understood. Laboratory Results WBC 7.88 10^3/uL (3.29-11.43) 04/04/23 22:49 RBC 4.15 10^6/uL (3.85-5.65) 04/04/23 22:49 Hgb 13.10 g/dL (11.27-16.99) 04/04/23 22:49 Hct 40.0 % (36-47) 04/04/23 22:49 MCV 96.4 fl (85-98) 04/04/23 22:49 MCH 31.6 pg (27-33) 04/04/23 22:49 MCHC 32.8 g/dL (30-55) 04/04/23 22:49 RDW 12.4 % (12.1-15.1) 04/04/23 22:49 Plt Count 277 10^3/cmm (157-399) 04/04/23 22:49 MPV 9.6 fL (7.4-10.4) 04/04/23 22:49 Neut % (Auto) 87.3 % 04/04/23 22:49 Lymph % (Auto) 8.8 % 04/04/23 22:49 [place] % (Auto) 3.2 % 04/04/23 22:49 Eos % (Auto) 0.0 % 04/04/23 22:49 Baso % (Auto) 0.3 % 04/04/23 22:49 Neut # (Auto) 6.89 10^3/uL (1.8-7.7) 04/04/23 22:49 Lymph # (Auto) 0.7 10^3/uL (0.8-4.8) L 04/04/23 22:49 [place] # (Auto) 0.3 10^3/uL (0.2-0.9) 04/04/23 22:49 Eos # (Auto) 0.0 10^3/uL (0.0-0.8) 04/04/23 22:49 Baso # (Auto) 0.0 10^3/uL (0.0-0.1) 04/04/23 22:49 Nucleated RBC % (auto) 0 % 04/04/23 22:49 Nucleated RBCs # 0.0 /100WBC 04/04/23 22:49 Sodium 139 mmol/L (136-145) 04/04/23 22:49 Potassium 3.8 mmol/L (3.5-5.1) 04/04/23 22:49 Chloride 99 mmol/L (98-107) 04/04/23 22:49 Carbon Dioxide 25 mmol/L (22-29) 04/04/23 22:49 Anion Gap 18.8 (5-19) 04/04/23 22:49 BUN 15 mg/dL (8-23) 04/04/23 22:49 Creatinine 0.7 mg/dL (0.5-0.9) 04/04/23 22:49 GFR Calculation Not Reportable 04/04/23 22:49 Glucose 145 mg/dL (65-115) H 04/04/23 22:49 Calculated Osmolality 291 mOsm/kg (285-295) 04/04/23 22:49 Calcium 10.1 mg/dL (8.5-10.5) 04/04/23 22:49 Total Bilirubin 0.9 mg/dL (0.15-1.2) 04/04/23 22:49 AST 15 U/L (0-32) 04/04/23 22:49 ALT 13 U/L (0-33) 04/04/23 22:49 Alkaline Phosphatase 63 U/L (35-105) 04/04/23 22:49 Troponin T Baseline < 6 ng/L (0-10) 04/04/23 22:49 Troponin T 120 Minute 6.00 ng/L (0-10) 04/05/23 00:15 Delta Troponin T 0.53221 ABS# (0-10) 04/05/23 00:15 Total Protein 7.4 g/dL (6.6-8.7) 04/04/23 22:49 Albumin 4.3 g/dL (3.5-5.2) 04/04/23 22:49 Globulin 3.1 g/dL (1.3-4.6) 04/04/23 22:49 Lipase 20 U/L (13-60) 04/04/23 22:49 All radiology interpretation(s) finalized by discharge EKG Data EKG 1: EKG interpretation date: 04/05/23 EKG interpretation time: 00:15 Prior EKG tracings: not available for review Interpretation: EKG shows sinus rhythm with a irregular rate at [address] elevation or ectopy is noted. EKGs appears to be sinus rhythm with a sinus arrhythmia. Computer generated interpretation: Sinus rhythm with sinus arrhythmia, moderate ST depression, abnormal EKG, unconfirmed report. Discharge Plan Discharge Patient Disposition: Admitted As Inpatient Clinical Impression: Small bowel obstruction Condition: Stable Coding Level of Care Code ED Tree Pruner for Noa Maria
[2023-04-04 22:53] LABS: Basophils % 0.3 %; Lymphocytes # 0.7 10^3/uL (0.8-4.8); Lymphocytes % 8.8 %; Mean Corpuscular HGB Conc 32.8 g/dL (30-55); Mean Corpuscular Hemoglobin 31.6 pg (27-33); Mean Corpuscular Volume 96.4 fl (85-98); Mean Platelet Volume 9.6 fL (7.4-10.4); Monocytes # 0.3 10^3/uL (0.2-0.9); Monocytes % 3.2 %; Neutrophils # 6.89 10^3/uL (1.8-7.7); Neutrophils % 87.3 %; Nucleated Red Blood Cells % 0 %; Platelet Count 277 10^3/cmm (157-399); Red Blood Count 4.15 10^6/uL (3.85-5.65); Red Cell Distribution Width 12.4 % (12.1-15.1); White Blood Count 7.88 10^3/uL (3.29-11.43)
[2023-04-04 23:09] LABS: Alanine Aminotransferase 13 U/L (0-33); Albumin Level 4.3 g/dL (3.5-5.2); Alkaline Phosphatase 63 U/L (35-105); Anion Gap 18.8 (5-19); Aspartate Amino Transferase 15 U/L (0-32); Blood Urea Nitrogen 15 mg/dL (8-23); Calcium 10.1 mg/dL (8.5-10.5); Carbon Dioxide 25 mmol/L (22-29); Chloride 99 mmol/L (98-107); Globulin 3.1 g/dL (1.3-4.6); Glucose 145 mg/dL (65-115); Lipase 20 U/L (13-60); Osmolality Calculated 291 mOsm/kg (285-295); Potassium 3.8 mmol/L (3.5-5.1); Sodium 139 mmol/L (136-145); Total Bilirubin 0.9 mg/dL (0.15-1.2); Total Protein 7.4 g/dL (6.6-8.7)
[2023-04-04 23:24] LABS: Troponin(5th) Baseline < 6 ng/L (0-10)
[2023-04-04] MEDS: ondansetron 2 mg/ML SDV 2 mL 4 MG IVP (23:44)
[2023-04-05] VITALS (7 sets, daily range): BP systolic 106–155; BP diastolic 55–84; PULSE 57–89; RESP 16–18; TEMP 36.7–37.1; O2SAT 94–99
--- NOTE | 2023-04-05 00:12 | ECG_ITS ---
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 Measurements Intervals [place] Rate: 67 P: 79 PA: 178 QRS: 82 QRSD: 74 T: 85 QT: 409 QTc: 435 Interpretive Statements SINUS RHYTHM WITH SINUS ARRHYTHMIA MODERATE ST DEPRESSION [0.05+ mV ST DEPRESSION] Compared to ECG 06/03/2022 15:33:23 ST (T wave) deviation now present Electronically Signed On 04-05-2023 6:51:59 TRACK MECHANIC by Ching Marquez M.D. [id number]
[2023-04-05] MEDS: sodium chloride 0.9% 500 ML IV (00:20)
[2023-04-05] MEDS: metoclopramide 5 mg/mL SDV 2 mL 10 MG IVP (00:28)
[2023-04-05 00:44] LABS: Troponin 5 2HR Delta 0.00001 ABS# (0-10)
--- NOTE | 2023-04-05 01:24 | XRR_ITS ---
PROCEDURE INFORMATION: Exam: XR Abdomen Exam date and time: 04/05/2023 1:33 AM Age: 78 years old Clinical indication: Device placement; Gi device; Nasogastric tube; Additional info: Gastric tube placement TECHNIQUE: Imaging protocol: Radiologic exam of the abdomen. Views: Frontal supine view of the abdomen. 1 View. COMPARISON: CT abdomen pelvis con [id number] 04/04/2023 11:55 PM FINDINGS: Tubes, catheters and devices: The nasogastric tube is in the body of the stomach. Retroperitoneum: Multiple surgical clips are noted along the lymph node chains of the pelvis. Gastrointestinal tract: There are dilated loops of small bowel in the lower abdomen. Bones/joints: Unremarkable. XR/XR abdomen 1V* [id number] IMPRESSION: Nasogastric tube and side port in the stomach.
[2023-04-05] MEDS: LORazepam 2 mg/mL INJ 1 mL 0.5 MG IVP (01:31)
--- NOTE | 2023-04-05 05:01 | P.HP_ITS ---
Providers/Chief Complaint 2 Admitting Physician: Eliana Bernal MD Primary Care Provider: Jaun Jerome DO Chief Complaint: N/V History of Present Illness Nelly Segura is a 78 year old female who has multiple obstruction in May was managed conservatively, she was asked to follow-up with oncology for axillary lymph nodes, she has not done so, she carries history of breast cancer, her oncologist is in [facility], presented today with chief complaint of nausea and vomiting. Patient has been experiencing nausea and vomiting for last 2 days, she was extremely hungry and thirsty but was not able to keep anything down, her last bowel movement was yesterday, she has not been able to sleep because of abdominal pain, she has not noticed any fever, diarrhea. Please note, she was given antibiotic course for her UTI by her PCP. In the ER she has been diagnosed with high-grade bowel obstruction, NG tube has been placed She does not want NG tube however agreeable to keep that in until general surgery evaluation in the morning Patient is stating that she does not think she still has cancer related lymphadenopathy however stating that she was told in the past that all the lymph nodes were not taken out during surgery/mastectomy. She is still experiencing signs of UTI with dysuria and frequency Review of Systems 2 Eyes: Denies: change in vision ENMT: Denies: throat pain Card: Denies: chest pain Resp: Denies: dyspnea GI: Reports: abdominal pain, nausea and vomiting : Denies: flank pain Musc: Denies: neck pain Medications/Allergies Home Medications Medication Instructions Recorded Confirmed Last Taken Type ondansetron 4 mg disintegrating 4 mg PO Q8H PRN nausea and 06/02/22 06/06/22 Unknown Rx tablet vomiting #15 tabs amoxicillin 875 mg-potassium 1 tab PO BID #20 tabs 03/01/23 03/01/23 Unknown Rx clavulanate 125 mg tablet apixaban 5 mg tablet (Eliquis) 5 mg PO BID 03/01/23 03/01/23 Unknown History diltiazem HCl 120 mg 120 mg PO DAILY 03/01/23 03/01/23 Unknown History capsule,extended release 12 hr Allergies Allergy/AdvReac Type Severity Reaction Status Date / Time erythromycin base Allergy unknown Verified 03/01/23 15:17 Sulfa (Sulfonamide Allergy unknown Verified 03/01/23 15:17 Antibiotics) PFSH Acute 2 PFSH: Medical History History of cancer of left breast Osteoarthritis of knees, bilateral Surgical History History of total abdominal hysterectomy and bilateral salpingo-oophorectomy History of bilateral mastectomy Social History Smoking and tobacco/nicotine status: never used tobacco/nicotine Alcohol intake: never Substance/Drug Use: never Vitals/I&O/Wt Last Vital Signs Temp 98.2 F 04/05/23 04:29 Pulse 82 04/05/23 04:29 Resp 16 04/05/23 04:29 BP 111/73 04/05/23 04:29 Pulse Ox 94 04/05/23 04:29 O2 Del Method Room Air 04/05/23 04:29 04/04/23 04/04/23 04/05/23 14:59 22:59 06:59 Intake Total 500 / 500 Balance 500 / 500 Weight last 48 hrs Weight 64.274 kg Weight 58.967 kg Physical Exam 2 Narrative: Awake and alert Pleasant GCS 15 abdomen nontender at the time of evaluation No sign of peritonitis Bowel sounds sluggish Clinical looks dehydrated Currently on room air NG tube in place Pleasant and cooperative Nonfocal neuro exam Data 04/04/23 22:49 04/04/23 22:49 A&P Assessment and plan (1) Small bowel obstruction: (2) History of bilateral mastectomy: (3) History of cancer of left breast: (4) Axillary adenopathy: (5) UTI (urinary tract infection): Plan Small bowel obstruction Conservative management Will need general surgery consultation in the morning, patient has high-grade small bowel obstruction with transition point at the mesenteric referral and upper pelvis, history of axillary lymphadenopathy, oncologist is in [facility] We will give her Zosyn for UTI NG tube placement Start dextrose normal saline IV fluids Check electrolytes No active signs of peritonitis N.p.o. Stop Eliquis and switch to therapeutic Lovenox IV We will give him Cardizem IV push if needed For A-fib RVR greater than 110 Full code She had similar episode in May which was managed conservatively Lives with her Attestations 2 Medical Necessity Statement*: More than 2 midnights anticipated Diagnoses Small bowel obstruction K56.609 History of bilateral mastectomy Z90.13 History of cancer of left breast Z85.3 Axillary adenopathy R59.0 UTI (urinary tract infection) N39.0
[2023-04-05 05:09] LABS: Troponin 5 6HR Delta 0.00001 ng/L (0-12)
[2023-04-05] MEDS: enoxaparin 100 mg/mL Syringe 60 MG SUBCUT (05:25)
[2023-04-05] MEDS: dextrose 5%-sod chloride 0.9% 1,000 ML 75 ML IV (05:25)
[2023-04-05] MEDS: piperacillin-tazobactam 3.375 GM in sodium chloride 0.9% (plus) 50 ML IV ×3 (08:09→23:07)
--- NOTE | 2023-04-05 09:09 | PC.CHAP ---
Pastoral Care Encounter/Spiritual Assessment Type of Contact [] Declined central supply nurse visit [] Patient/Family/Request visit [] Outpatient visit [] Follow-up visit [] Physician referral [] Code/Alert [x] Routine visit [] Staff referral [] Actively dying [] Patient sleeping [] Family support [] [] Out of room [] Palliative care [] [] Receiving care in room [] Pre-surgical visit [] Trauma [] Long length of stay [] ICU visit [] Other: Relational/Emotional Strength [x] Patient feels connected with others/family/visitors/staff [] Distress [] Loneliness/isolation [] Abandonment Spirituality of Patient [x] Person of Kayleen [] Attends Hindu of their Kayleen [x] Believes in Prayer [] Reads Bible or Christian materials [] There are Spiritual issues to be addressed Compliance Analyst Interventions [x] Prayer [x] Active listening [] Non-anxious presence [x] Spiritual/emotional support [] Crisis/trauma care [] Spiritual counseling [] Bereavement support [] Provided bereavement packet [] Provided Bible/devotional materials [] Provided toy/stuffed animal, coloring book to patient or family member [] Provided Communion [] Anointing/[place] [] Salvation [x] Completed spiritual assessment [] Other: Impact on Illness or Injury [] Angry [] Fearful [] Anxious [] Often cries [] Exhaustion [] Unable to work [] Unable to attend confucianism [] Unable to walk/stand [] Unable to read [] Unable to drive [] Unable to eat/drink [] Unable to sleep [] Unable to be with family [] Patient intubated [] Other: Summary Time spent with patient 5 min
[2023-04-05 09:38] LABS: Add Urine Culture? Yes; Add Urine Microscopic? YES; Bacteria Urine 4+ /hpf; Bilirubin Urine Neg (Negative); Blood Urine 2+ (Negative); Glucose Urine UA Norm (Normal); Ketones Urine 1+ (Negative); Leukocyte Esterase Urine 2+ (Negative); Nitrate Urine Negative (Negative); Protein Urine Neg (Negative); RBC Urine 0-4 /hpf (0-2); Squamous Epithelial Cell Urine 0-4 /hpf (0-5); Urine Appearance Hazy (CLEAR); Urine Color Yellow (Yellow); Urobilinogen Urine Norm (Negative); WBC Urine >100 /hpf (0-5); pH Urine 5 (5-7)
[2023-04-05] MEDS: pantoprazole 40 mg SDV IVP ×2 (09:46→18:03)
--- NOTE | 2023-04-05 13:11 | PM.MISC ---
Miscellaneous Note Purpose of Documentation: overnight labs and H&P reveiwed, consult general surgery for SBO, continue to hold eliquis, continue IVF
--- NOTE | 2023-04-05 13:12 | PC.SOCIAL ---
IMM Update pg 2 of IMM updated and reviewed w/ patient. Copy provided and copy dated, initialed and placed in chart.
--- NOTE | 2023-04-05 13:18 | P.CONIM_ITS ---
Providers/Reason For Consult 2 Consulting Physician/Specialty*: Dr. Delfino Beckett DO/General surgery Reason for Consult*: Small bowel obstruction Attending Physician: Sheela Doll MD Primary Care Provider: Jaun Jerome DO History of Present Illness History of Present Illness Nelly Segura is a 78 year old female who presents to the hospital with a several day history of bloating nausea and emesis. She reports that she has not passed flatus or had a bowel movement for the last 24 hours. She has a history of small bowel obstruction that resolved with conservative treatment. She reports diffuse mild abdominal pain that does not radiate. Palpation makes pain worse. Nothing makes pain better. She denies any hematemesis, hematochezia and/or melena Review of Systems 2 General: Reports: 10 or more systems reviewed and unremarkable except in HPI and below Medications/Allergies Home Medications Medication Instructions Recorded Confirmed Last Taken Type apixaban 5 mg tablet (Eliquis) 5 mg PO BID 03/01/23 04/05/23 04/03/23 History diltiazem HCl 120 mg 120 mg PO DAILY 03/01/23 04/05/23 04/03/23 History capsule,extended release 12 hr Allergies Allergy/AdvReac Type Severity Reaction Status Date / Time erythromycin base Allergy unknown Verified 03/01/23 15:17 Sulfa (Sulfonamide Allergy unknown Verified 03/01/23 15:17 Antibiotics) Current Medications Generic Name Dose Route Start Last Admin Trade Name Freq PRN Reason Stop Dose Admin Dextrose/Sodium Chloride 1,000 mls @ 75 mls/hr 04/05/23 05:15 04/05/23 05:25 Dextrose 5%-Sod Chloride 0.9% IV 75 mls/hr .[id number] WALDEMAR Administration Piperacillin Sod/Tazobactam 50 mls @ 12.5 mls/hr 04/05/23 07:00 04/05/23 12:35 Sod 3.375 gm/ Sodium Chloride IV Infused Q8H WALDEMAR Infusion Pantoprazole Sodium 40 mg 04/05/23 09:00 04/05/23 09:46 Pantoprazole 40 Mg Sdv IVP 40 mg BID WALDEMAR Administration PFSH Acute 2 PFSH: Medical History History of cancer of left breast Osteoarthritis of knees, bilateral Surgical History History of total abdominal hysterectomy and bilateral salpingo-oophorectomy History of bilateral mastectomy Social History Smoking and tobacco/nicotine status: never used tobacco/nicotine Alcohol intake: never Substance/Drug Use: never Vitals/I&O/Wt Last Vital Signs Temp 98.1 F 04/05/23 11:45 Pulse 85 04/05/23 11:45 Resp 18 04/05/23 11:45 BP 117/77 04/05/23 11:45 Pulse Ox 98 04/05/23 11:45 O2 Del Method Room Air 04/05/23 11:45 04/04/23 04/05/23 04/05/23 22:59 06:59 14:59 Intake Total 500 / 500 50 / 50 Balance 500 / 500 50 / 50 Weight last 48 hrs Weight 141 lb 3 oz Weight 141 lb 11.2 oz Weight 130 lb Physical Exam 2 Narrative: General : Patient is well developed , no acute distress, oriented x3 Head : Normal cephalic, a-traumatic. Ears : Pinnae and external canal are normal. Hearing is normal. Eyes : PERRLA, Sclera and injection are normal. No conjunctival discharge. Nose : Mucous membranes are without erythema. Throat : buccal mucosa is normal, gums are without significant recession or hypertrophy. Lungs : Equal chest rise bilaterally, no use of accessory muscles, trachea is midline. Cor : Rate and rhythm are normal. Abdomen : Soft, mild distention and mild diffuse tenderness, no g/r/m Extremities : No edema, no cyanosis or clubbing, dorsalis pedis pulses are present bilaterally, non-tender to palpation of calves. Upper extremities are normal bilaterally. Back : non-tender to palpation, no CVA tenderness. Neuro : CN II - XII intact, Upper and lower extremities have equal and full strength Data 04/06/23 04:28 04/06/23 04:28 A&P Assessment and plan (1) Small bowel obstruction: Plan Increase IV fluids to 150 cc/h N.p.o./NG tube to low intermittent suction Aggressive electrolyte replacement Ambulate in halls while clamping for 30 minutes at a time Conservative management for now, if she does not open up in the next few days we will have to consider diagnostic laparoscopy versus exploratory laparotomy Medical management per hospitalist Coding Level of Care Code 02599 Diagnoses Small bowel obstruction K56.609
--- NOTE | 2023-04-05 13:34 | PC.NURSE ---
This nurse rounded with DR. Beckett at bedside. Dr. Beckett discussed plan with patient. This nurse recieved verbal orders from . See message to nurse order.
[2023-04-05] MEDS: enoxaparin 60 mg/0.6 mL Syringe SUBCUT (17:51)
[2023-04-05] MEDS: dextrose 5%-sod chloride 0.9% 1,000 ML 150 ML IV (17:51)
[2023-04-06] VITALS (7 sets, daily range): BP systolic 94–130; BP diastolic 61–79; PULSE 64–107; RESP 16–17; TEMP 36.4–37.3; O2SAT 93–99; BMI 29.4
[2023-04-06] MEDS: dextrose 5%-sod chloride 0.9% 1,000 ML 150 ML IV ×2 (01:44→08:11)
--- NOTE | 2023-04-06 03:13 | PC.NURSE ---
Patient stating that her nose and throat are sore. Patient stating that she has passed gas multiple times and is inquiring if the NG tube can be removed. Per orders, NG tube was removed at 0200 and patient was started on clear liquids.
[2023-04-06 04:55] LABS: Basophils % 0.6 %; Eosinophils # 0.1 10^3/uL (0.0-0.8); Eosinophils % 1.6 %; Hematocrit 36.3 % (36-47); Lymphocytes # 1.1 10^3/uL (0.8-4.8); Lymphocytes % 16.1 %; Mean Corpuscular Hemoglobin 31.8 pg (27-33); Mean Corpuscular Volume 99.5 fl (85-98); Mean Platelet Volume 9.9 fL (7.4-10.4); Monocytes # 0.7 10^3/uL (0.2-0.9); Monocytes % 9.4 %; Neutrophils # 5.07 10^3/uL (1.8-7.7); Nucleated Red Blood Cells % 0 %; Platelet Count 233 10^3/cmm (157-399); Red Blood Count 3.65 10^6/uL (3.85-5.65); Red Cell Distribution Width 12.6 % (12.1-15.1); White Blood Count 7.03 10^3/uL (3.29-11.43)
[2023-04-06 05:12] LABS: Anion Gap 13.9 (5-19); Blood Urea Nitrogen 11 mg/dL (8-23); Calcium 8.2 mg/dL (8.5-10.5); Carbon Dioxide 23 mmol/L (22-29); Chloride 111 mmol/L (98-107); Creatinine Clr Calc Pharmacy 56.7039; Glucose 122 mg/dL (65-115); Magnesium 1.6 mg/dL (1.7-2.3); Osmolality Calculated 301 mOsm/kg (285-295); Sodium 145 mmol/L (136-145)
[2023-04-06 05:13] LABS: Potassium 2.9 mmol/L (3.5-5.1)
[2023-04-06] MEDS: enoxaparin 60 mg/0.6 mL Syringe SUBCUT ×2 (05:39→17:01)
[2023-04-06] MEDS: piperacillin-tazobactam 3.375 GM in sodium chloride 0.9% (plus) 50 ML IV ×2 (08:10→16:19)
[2023-04-06] MEDS: pantoprazole 40 mg SDV IVP ×2 (09:02→18:03)
--- NOTE | 2023-04-06 11:13 | P.PN_ITS ---
Subjective 2 Subjective: Patient seen and examined. She passed flatus overnight and had her NG tube removed. She is tolerating clear liquid diet. Reports that she still passing flatus but has not had a bowel movement yet. Denies any abdominal pain. Vitals/I&O/Wt Last Vital Signs Temp 97.8 F 04/06/23 07:58 Pulse 72 04/06/23 07:58 Resp 16 04/06/23 07:58 BP 103/64 04/06/23 07:58 Pulse Ox 97 04/06/23 07:58 O2 Del Method Room Air 04/06/23 07:58 04/05/23 04/06/23 04/06/23 22:59 06:59 14:59 Intake Total 1050 / 1100 1050 / 2150 1087.5 / 1087.5 Balance 1050 / 1100 1050 / 2150 1087.5 / 1087.5 Weight last 48 hrs Weight 145 lb 9 oz Weight 141 lb 3 oz Weight 141 lb 11.2 oz Weight 130 lb Physical Exam 2 Narrative: General: No acute distress, awake alert and oriented x3 Abdomen: Soft, minimally distended, nontender, no guarding rebound or masses Data 04/06/23 04:28 04/06/23 04:28 A&P Assessment and plan (1) Small bowel obstruction: Plan IV fluids to 75 cc/h Advance to full liquid diet Aggressive electrolyte replacement Ambulate in halls Surgically stable for discharge on a full liquid diet. After her first bowel movement I would like her to be on a soft diet for 3 days. Medical management per hospitalist Attestations 2 Medical Necessity Statement*: Per primary Coding Level of Care Code Acute Code for Chg Fwd Diagnoses Small bowel obstruction K56.609
[2023-04-06] MEDS: lidocaine 1% 5 ML in potassium chloride premix 100 ML 25 ML IV (11:52)
[2023-04-06] MEDS: magnesium sulfate premix 4 GM/100 ML PREMIX IV (11:53)
--- NOTE | 2023-04-06 16:35 | P.PN_ITS ---
Subjective 2 Subjective: Improving today. Able to tolerate a clear liquid diet. Trial of advancing diet as full liquid today. Passing flatus. Had a small bowel movement this afternoon. Vitals/I&O/Wt Last Vital Signs Temp 98.0 F 04/06/23 12:00 Pulse 67 04/06/23 12:00 Resp 16 04/06/23 12:00 BP 114/74 04/06/23 12:00 Pulse Ox 94 04/06/23 12:00 O2 Del Method Room Air 04/06/23 12:00 04/06/23 04/06/23 04/06/23 06:59 14:59 22:59 Intake Total 1050 / 2150 1975.0 / 1974.0 105 / 2079.0 Balance 1050 / 2150 1974.0 / 1974.0 105 / 2079.0 Weight last 48 hrs Weight 66.026 kg Weight 64.042 kg Weight 64.274 kg Weight 58.967 kg Physical Exam 2 Narrative: General: No acute distress, AO x3 HEENT: PERRLA, pupils bilaterally equal and reactive, pallors not present Chest: Normal vesicular breath sounds, no added sounds, equal good air entry bilaterally CVS: S1-S2 regular, no murmurs, no tachycardia, no gallops, no rubs Abdomen: Soft, nontender, no organomegaly, bowel sounds present Neuro: No focal deficits, no facial deformity, AO x3, power 5/5 in all limbs Data 04/06/23 04:28 04/06/23 04:28 Micro: Microbiology 04/05/23 08:16 Urine Culture - Preliminary Urine,Clean Catch Gram Negative Rods A&P Assessment and plan (1) Small bowel obstruction: (2) History of bilateral mastectomy: (3) History of cancer of left breast: (4) Axillary adenopathy: (5) UTI (urinary tract infection): Plan Small bowel obstruction Conservative management Will need general surgery consultation in the morning, patient has high-grade small bowel obstruction with transition point at the mesenteric referral and upper pelvis, history of axillary lymphadenopathy, oncologist is in [facility] We will give her Zosyn for UTI NG tube placement Start dextrose normal saline IV fluids Check electrolytes No active signs of peritonitis N.p.o. Stop Eliquis and switch to therapeutic Lovenox IV We will give him Cardizem IV push if needed For A-fib RVR greater than 110 Full code She had similar episode in May which was managed conservatively Lives with her Plan for today: Continue clear liquid diet. Gram-negative rods on urine culture awaiting identification. Passing feces and flatus today. If continues to improve anticipate discharge over the next 24 hours. Hypokalemia with potassium at 2.9. Supplemented through IV and oral. Recheck this afternoon. Hypomagnesemia repleted. Attestations 2 Medical Necessity Statement*: Slowly improving, advance diet, monitor next 24 hours, anticipate discharge if continues to improve Coding Level of Care Code Acute Code for Chg Fwd Diagnoses Small bowel obstruction K56.609 History of bilateral mastectomy Z90.13 History of cancer of left breast Z85.3 Axillary adenopathy R59.0 UTI (urinary tract infection) N39.0
[2023-04-06] MEDS: dextrose 5%-sod chloride 0.9% 1,000 ML 75 ML IV (17:01)
[2023-04-06 20:41] LABS: Alanine Aminotransferase 10 U/L (0-33); Albumin Level 3.7 g/dL (3.5-5.2); Alkaline Phosphatase 46 U/L (35-105); Anion Gap 13.6 (5-19); Aspartate Amino Transferase 12 U/L (0-32); Blood Urea Nitrogen 7 mg/dL (8-23); Calcium 8.3 mg/dL (8.5-10.5); Carbon Dioxide 22 mmol/L (22-29); Chloride 109 mmol/L (98-107); Globulin 2.6 g/dL (1.3-4.6); Glucose 103 mg/dL (65-115); Osmolality Calculated 290 mOsm/kg (285-295); Potassium 3.6 mmol/L (3.5-5.1); Sodium 141 mmol/L (136-145); Total Bilirubin 0.8 mg/dL (0.15-1.2); Total Protein 6.3 g/dL (6.6-8.7)
[2023-04-07] VITALS: BP 119/66; PULSE 68; RESP 17; TEMP 36.9; O2SAT 95
[2023-04-07] MEDS: piperacillin-tazobactam 3.375 GM in sodium chloride 0.9% (plus) 50 ML IV ×2 (00:37→08:16)
[2023-04-07 02:51] LABS: Eosinophils # 0.2 10^3/uL (0.0-0.8); Eosinophils % 4.7 %; Hematocrit 33.6 % (36-47); Lymphocytes # 1.2 10^3/uL (0.8-4.8); Lymphocytes % 28.7 %; Mean Corpuscular HGB Conc 31.3 g/dL (30-55); Mean Corpuscular Hemoglobin 31.3 pg (27-33); Mean Platelet Volume 9.9 fL (7.4-10.4); Monocytes # 0.5 10^3/uL (0.2-0.9); Monocytes % 12.4 %; Neutrophils # 2.14 10^3/uL (1.8-7.7); Nucleated Red Blood Cells % 0 %; Platelet Count 222 10^3/cmm (157-399); Red Blood Count 3.36 10^6/uL (3.85-5.65); Red Cell Distribution Width 12.7 % (12.1-15.1); White Blood Count 4.04 10^3/uL (3.29-11.43)
[2023-04-07 03:07] VITALS: BP 110/71; PULSE 71; RESP 16; TEMP 36.4; O2SAT 95
[2023-04-07 03:19] LABS: Alanine Aminotransferase 10 U/L (0-33); Albumin Level 3.6 g/dL (3.5-5.2); Alkaline Phosphatase 47 U/L (35-105); Anion Gap 13.3 (5-19); Aspartate Amino Transferase 12 U/L (0-32); Blood Urea Nitrogen 7 mg/dL (8-23); Calcium 8.4 mg/dL (8.5-10.5); Carbon Dioxide 23 mmol/L (22-29); Chloride 110 mmol/L (98-107); Globulin 2.6 g/dL (1.3-4.6); Glucose 132 mg/dL (65-115); Osmolality Calculated 296 mOsm/kg (285-295); Potassium 3.3 mmol/L (3.5-5.1); Sodium 143 mmol/L (136-145); Total Bilirubin 0.7 mg/dL (0.15-1.2); Total Protein 6.2 g/dL (6.6-8.7)
[2023-04-07 06:00] VITALS: BMI 31.1
[2023-04-07] MEDS: dextrose 5%-sod chloride 0.9% 1,000 ML 75 ML IV (06:23)
[2023-04-07] MEDS: enoxaparin 60 mg/0.6 mL Syringe SUBCUT (06:23)
[2023-04-07 08:00] VITALS: BP 101/61; PULSE 66; RESP 15; TEMP 36.6; O2SAT 96
[2023-04-07] MEDS: potassium chloride ER 20 mEq Tablet PO (08:17)
[2023-04-07] MEDS: pantoprazole 40 mg SDV IVP (08:33)
--- NOTE | 2023-04-07 10:30 | P.DS_ITS ---
Discharge Providers Date of Admission: 04/05/23 01:38 Date of Discharge: April 07, 2023 Attending Provider at Admission: Eliana Bernal MD Attending Provider at Discharge: Sheela Doll MD Primary Care Provider: Jaun Jerome DO Diagnoses at Discharge Discharge Diagnosis (1) Small bowel obstruction: Status: Acute (2) History of bilateral mastectomy: Status: Acute (3) History of cancer of left breast: Status: Acute (4) Axillary adenopathy: Status: Acute (5) UTI (urinary tract infection): Status: Acute Reason for Visit Reason for Visit: N/V Hospital Course Hospital Course 78-year-old lady with a past medical history of SBO in May likely related to additions presented to the emergency room on April 05, 2023 with nausea vomiting and inability to tolerate any p.o. intake. In the ER she was diagnosed with high-grade bowel obstruction, NG tube was placed. She was managed conservatively. NG tube was able to be removed on April 06, 2023. Trial of clear liquid diet was started and patient tolerated this well. She was able to pass flatus and had 1 bowel movement yesterday. There were no active signs of peritonitis. She is able to keep food down today. She is being discharged today in improved condition after conservative management. She was also diagnosed with UTI for which she received antibiotics. Identification and susceptibility of gram-negative rods on her urine is not back yet. She is being discharged with a empric course of levofloxacin for the UTI, recommended to follow-up with primary care physician for final identification and susceptibility. Physical Exam Narrative: General: No acute distress, AO x3 HEENT: PERRLA, pupils bilaterally equal and reactive, pallors not present Chest: Normal vesicular breath sounds, no added sounds, equal good air entry bilaterally CVS: S1-S2 regular, no murmurs, no tachycardia, no gallops, no rubs Abdomen: Soft, nontender, no organomegaly, bowel sounds present Neuro: No focal deficits, no facial deformity, AO x3, power 5/5 in all limbs Discharge Data Studies Completed and Pending Completed Studies During Hospitalization Category Date Time Status CT abdomen pelvis wo con [id number] Stat Cat Scan 04/04/23 22:33 Completed XR abdomen 1V* [id number] Stat Exams 04/05/23 01:24 Completed Pending at discharge Category Date Time Status Complete Blood Count w/Auto AM LABS Lab 04/08/23 04:00 Ordered Complete Blood Count w/Auto AM LABS Lab 04/09/23 04:00 Ordered Comprehensive Metabolic Panel AM LABS Lab 04/08/23 10:33 Ordered Urine Culture Stat Lab 04/05/23 08:16 Results Radiology Impressions Abdomen/Pelvis CT 04/04/23 22:33 IMPRESSION: 1. High-grade small bowel obstruction with a transition point at a mesenteric whirl in the upper pelvis. 2. Bladder wall thickening suggesting cystitis, incomplete distention or chronic outflow obstruction. 3. Mild diverticulosis of the distal colon without diverticulitis. 4. Increased density in the gallbladder that may represent sludge and/or gallstones. No evidence of cholecystitis. ADDENDUM: 04/05/23 0100 THIS REPORT CONTAINS FINDINGS THAT MAY BE CRITICAL TO PATIENT CARE. The findings were verbally communicated via telephone conference with CHYNA LATIF at 12:58 AM [employer] on 04/05/2023. The findings were acknowledged and understood. Abdomen X-Ray 04/05/23 01:24 IMPRESSION: Nasogastric tube and side port in the stomach. Laboratory Results WBC 4.04 10^3/uL (3.29-11.43) 04/07/23 02:25 RBC 3.36 10^6/uL (3.85-5.65) L 04/07/23 02:25 Hgb 10.50 g/dL (11.27-16.99) L 04/07/23 02:25 Hct 33.6 % (36-47) L 04/07/23 02:25 MCV 100.0 fl (85-98) H 04/07/23 02:25 MCH 31.3 pg (27-33) 04/07/23 02:25 MCHC 31.3 g/dL (30-55) 04/07/23 02:25 RDW 12.7 % (12.1-15.1) 04/07/23 02:25 Plt Count 222 10^3/cmm (157-399) 04/07/23 02:25 MPV 9.9 fL (7.4-10.4) 04/07/23 02:25 Neut % (Auto) 53.0 % 04/07/23 02:25 Lymph % (Auto) 28.7 % 04/07/23 02:25 Schuyler % (Auto) 12.4 % 04/07/23 02:25 Eos % (Auto) 4.7 % 04/07/23 02:25 Baso % (Auto) 1.0 % 04/07/23 02:25 Neut # (Auto) 2.14 10^3/uL (1.8-7.7) 04/07/23 02:25 Lymph # (Auto) 1.2 10^3/uL (0.8-4.8) 04/07/23 02:25 Schuyler # (Auto) 0.5 10^3/uL (0.2-0.9) 04/07/23 02:25 Eos # (Auto) 0.2 10^3/uL (0.0-0.8) 04/07/23 02:25 Baso # (Auto) 0.0 10^3/uL (0.0-0.1) 04/07/23 02:25 Nucleated RBC % (auto) 0 % 04/07/23 02:25 Nucleated RBCs # 0.0 /100WBC 04/07/23 02:25 Sodium 143 mmol/L (136-145) 04/07/23 02:25 Potassium 3.3 mmol/L (3.5-5.1) L 04/07/23 02:25 Chloride 110 mmol/L (98-107) H 04/07/23 02:25 Carbon Dioxide 23 mmol/L (22-29) 04/07/23 02:25 Anion Gap 13.3 (5-19) 04/07/23 02:25 BUN 7 mg/dL (8-23) L 04/07/23 02:25 Creatinine 0.7 mg/dL (0.5-0.9) 04/07/23 02:25 GFR Calculation Not Reportable 04/07/23 02:25 Glucose 132 mg/dL (65-115) H 04/07/23 02:25 Calculated Osmolality 296 mOsm/kg (285-295) H 04/07/23 02:25 Calcium 8.4 mg/dL (8.5-10.5) L 04/07/23 02:25 Magnesium 1.6 mg/dL (1.7-2.3) L 04/06/23 04:28 Total Bilirubin 0.7 mg/dL (0.15-1.2) 04/07/23 02:25 AST 12 U/L (0-32) 04/07/23 02:25 ALT 10 U/L (0-33) 04/07/23 02:25 Alkaline Phosphatase 47 U/L (35-105) 04/07/23 02:25 Troponin T Baseline < 6 ng/L (0-10) 04/04/23 22:49 Troponin T 120 Minute 6.00 ng/L (0-10) 04/05/23 00:15 Delta Troponin T 0.44581 ABS# (0-10) 04/05/23 00:15 Troponin T Hi Sens 6Hr 6.00 ng/L (0-10) 04/05/23 04:40 Troponin T Hi Sens 6Hr Delta 0.12970 ng/L (0-12) 04/05/23 04:40 C-Reactive Protein 4.0 mg/L (0.0-4.9) 04/06/23 04:28 Total Protein 6.2 g/dL (6.6-8.7) L 04/07/23 02:25 Albumin 3.6 g/dL (3.5-5.2) 04/07/23 02:25 Globulin 2.6 g/dL (1.3-4.6) 04/07/23 02:25 Lipase 20 U/L (13-60) 04/04/23 22:49 Urine Color Yellow (Yellow) 04/05/23 08:16 Urine Appearance Hazy (CLEAR) A 04/05/23 08:16 Urine pH 5 (5-7) 04/05/23 08:16 Ur Specific Leggett 1.020 (1.005-1.030) 04/05/23 08:16 Urine Protein Neg (Negative) 04/05/23 08:16 Urine Glucose (UA) Norm (Normal) 04/05/23 08:16 Urine Ketones 1+ (Negative) H 04/05/23 08:16 Urine Blood 2+ (Negative) H 04/05/23 08:16 Urine Nitrate Negative (Negative) 04/05/23 08:16 Urine Bilirubin Neg (Negative) 04/05/23 08:16 Urine Urobilinogen Norm mg/dL (Negative) 04/05/23 08:16 Ur Leukocyte Esterase 2+ (Negative) H 04/05/23 08:16 Urine RBC 0-4 /hpf (0-2) H 04/05/23 08:16 Urine WBC >100 /hpf (0-5) H 04/05/23 08:16 Ur Squamous Epith Cells 0-4 /hpf (0-5) H 04/05/23 08:16 Amorphous Sediment Not Reportable 04/05/23 08:16 Urine Bacteria 4+ /hpf (NONE) H 04/05/23 08:16 Vitals Last Vital Signs Temp 97.8 F 04/07/23 08:00 Pulse 66 04/07/23 08:00 Resp 15 04/07/23 08:00 BP 101/61 04/07/23 08:00 Pulse Ox 96 04/07/23 08:00 O2 Del Method Room Air 04/07/23 08:00 Discharge Plan Discharge Patient Disposition: Home Condition: Stable Prescriptions: Continued diltiazem HCl 120 mg capsule,extended release 12 hr 120 mg PO DAILY Eliquis 5 mg tablet 5 mg PO BID Discharge Orders: Discharge Order (Routine); Ordered 04/07/23 Ordered By: Sheela Doll Referrals: Jaun Jerome DO [Primary Care Provider] - 4-7 days Discharge Diet: Advance as tolerated and Full LIquid Discharge Activity: Resume usual activity Patient Instructions: Opioid Safety Discharge Attestations Time Spent in Discharge Care*: greater than 30 min Quality Metrics Clinical Quality Measures [ No reported AMI, CVA or VTE this stay] Coding Level of Care Code Acute Code for Chg Fwd Diagnoses Small bowel obstruction K56.609 History of bilateral mastectomy Z90.13 History of cancer of left breast Z85.3 Axillary adenopathy R59.0 UTI (urinary tract infection) N39.0
[2023-04-07] MEDS: potassium chloride ER 20 mEq Tablet 40 MEQ PO (11:19)
[2023-04-07 13:10] VITALS: BP 101/61; PULSE 66; RESP 15; TEMP 36.6; O2SAT 96
== END 2023-04-07 13:11 | disposition home or self-care (01) ==
LOC: ER 04-05 01:03 → MEDSURG 04-05 03:22
PROVIDERS: Admitting Provider Internal Medicine; Emergency Provider Nurse Practitioner Family; PCP Family Medicine; Visit Provider Student in an Organized Health Care Education/Training Program
DX: K56.609 Unspecified intestinal obstruction, unspecified as to partial versus complete obstruction (principal); Z90.12 Acquired absence of left breast and nipple; Z85.3 Personal history of malignant neoplasm of breast; R59.0 Localized enlarged lymph nodes; N39.0 Urinary tract infection, site not specified; K57.30 Diverticulosis of large intestine without perforation or abscess without bleeding
CPT/HCPCS: 36415; 74018; 74176; 80048; 80053; 81001; 83690; 83735; 84484; 85025; 86140; 87077; 87086; 87186; 93005; 96372; 96374; 96375; 99285; C9113; G0378; J1650; J2060; J2405; J2543; J2765; J3475; J3480; J7040; J7042

== ENCOUNTER 2023-05-27 03:22 | Emergency (ER) | payer MEDICARE, SELFPAY ==
[2023-05-27 03:23] VITALS: BP 123/79; PULSE 91; RESP 16; TEMP 36.8; O2SAT 100; BMI 32.3
--- NOTE | 2023-05-27 03:24 | XRR_ITS ---
PROCEDURE INFORMATION: Exam: XR Right Knee Exam date and time: 05/27/2023 3:29 AM Age: 78 years old Clinical indication: Injury or trauma; Blunt trauma; Right; Patient HX: C/O bilateral knee pain after falling directly onto knees while using a walker. Unable to extend knees from 45 degree angle. TECHNIQUE: Imaging protocol: Radiologic exam of the right knee. Views: 3 views. COMPARISON: CR XR knees AP WB w BI lmt ORTH 09/30/2019 10:12 AM FINDINGS: Bones/joints: Narrowing of the medial joint compartment and marginal osteophytes consistent with osteoarthritis. Acute fracture is not identified. There is increased medial inclination of the femur with widening of the medial joint compartment suggestive of ligamentous injury. A moderate-sized joint effusion or hemarthrosis. Soft tissues: There is soft tissue swelling.. XR/XR knee RT 3V* [id number] IMPRESSION: 1. Increased medial inclination of the femur with widening of the medial joint compartment suggestive of ligamentous injury. 2. Moderate-sized joint effusion or hemarthrosis. 3. No evidence of acute fracture.
--- NOTE | 2023-05-27 03:24 | XRR_ITS ---
PROCEDURE INFORMATION: Exam: XR Left Knee Exam date and time: 05/27/2023 3:36 AM Age: 78 years old Clinical indication: Injury or trauma; Blunt trauma; Left; Patient HX: C/O bilateral knee pain after falling directly onto knees while using a walker. Unable to extend knees from 45 degree angle. TECHNIQUE: Imaging protocol: Radiologic exam of the left knee. Views: 3 views. COMPARISON: CR XR knees AP WB w BI lmt ORTH 09/30/2019 10:12 AM FINDINGS: Bones/joints: Diffuse osseous demineralization. No acute fracture. Severe narrowing of the medial and lateral joint compartments and to a lesser extent the patellofemoral joint with prominent marginal osteophytes. A small suprapatellar effusion. Soft tissues: Mild soft tissue swelling. XR/XR knee LT 3V* [id number] IMPRESSION: 1. No evidence of acute fracture or dislocation. 2. Severe osteoarthritis. 3. A small suprapatellar effusion.
--- NOTE | 2023-05-27 03:28 | W.ED.FALL ---
HPI - Fall General: Chief Complaint: Fall Stated Complaint: Bilateral Knee pain post fall 5 days ago Time Seen by Provider: 05/27/23 03:24 Source: patient and EMS Mode of arrival: EMS Limitations: no limitations History of Present Illness: 78-year-old female states she fell 5 days ago in her garage and landed on both her knees. She has been having knee pain since then and rates her pain an 8 out of 10. States she has had a hard time ambulating due to the pain. Denies any other injuries denies hitting her head denies any hip pain Associated symptoms-after fall: Denies abdominal pain, chest pain, headache(s) or neck pain Review of Systems Const: Denies: fever(s), chills, body aches or change in appetite ENMT: Denies: throat pain or dental pain Card: Denies: chest pain Resp: Denies: dyspnea GI: Denies: abdominal pain, nausea, vomiting or diarrhea Musc: Reports: extremity pain; Denies: neck pain or back pain Skin/Breast: Denies: rash Neuro: Denies: headache(s) PFSH ED PFSH: Medical History History of cancer of left breast Osteoarthritis of knees, bilateral Surgical History History of total abdominal hysterectomy and bilateral salpingo-oophorectomy History of bilateral mastectomy Social History Smoking and tobacco/nicotine status: never used tobacco/nicotine Alcohol intake: never Substance/Drug Use: never Physical Exam Const: COMMON NORMALS: no acute distress, patient oriented x3 and healthy appearing HENMT: COMMON NORMALS: normocephalic and atraumatic HEAD & SCALP: normocephalic and atraumatic Eye: COMMON NORMALS: conjunctivae normal CONJUNCTIVA: Yes conjunctivae normal Neck/C-Spine: COMMON NORMALS: full ROM and supple Chest: COMMONS NORMALS: normal inspection of the chest Resp: COMMON NORMALS: normal respiratory effort Cardio: COMMON NORMALS: regular rate RATE: regular rate Extremity: NARRATIVE EXTREMITY EXAM: Tenderness to bilateral knees no hip or ankle tenderness Neuro: COMMON NORMALS: patient oriented x3, moves all extremities and no focal motor deficits Psych: COMMON NORMALS: mental status grossly normal, Normal thought process present and cooperative THOUGHT PROCESS: Normal thought process present Skin: COMMON NORMALS: no rashes or lesions noted and no wounds GENERAL SKIN EXAM: no rashes or lesions noted Course Vital Signs: Vital signs: Vital Signs Temperature 98.2 F 05/27/23 03:23 Pulse Rate 91 05/27/23 03:23 Respiratory Rate 16 05/27/23 03:23 Blood Pressure 123/79 05/27/23 03:23 Pulse Oximetry 100 05/27/23 03:23 Oxygen Delivery Me thod Room Air 05/27/23 03:23 MDM - Fall Medical Decision Making Patient presents here with bilateral knee pain after a fall imaging here shows no fracture patient is stable for discharge she is follow-up with PCP and return if worsening. Medical Records I reviewed the patient's medical records. Lab Data Radiology Impressions Knee X-Ray 05/27/23 03:24 IMPRESSION: 1. Increased medial inclination of the femur with widening of the medial joint compartment suggestive of ligamentous injury. 2. Moderate-sized joint effusion or hemarthrosis. 3. No evidence of acute fracture. ADDENDUM: 05/27/23 [id number] The following corrections are made after a review of the patient's CT scan of the right knee and of prior images: 1. Mild lateral subluxation of the tibia from the distal femur, which is chronic when compared to 09/30/2019, and is likely related to osteoarthritis. 2. Moderate-sized chronic joint effusion. Knee CT 05/27/23 03:41 IMPRESSION: 1. Findings suggest chronic osteoarthritis of the right knee with prominent osteophytes and moderate pleural effusion. 2. Mild chronic lateral subluxation. 3. Edema of the anterior subcutaneous adipose tissues. ADDENDUM: 05/27/23 [id number] The correct statement is as follows: 1. Severe osteoarthritis with involvement of all 3 joint compartments. 2. A moderate chronic joint effusion. 3. No acute fracture or dislocation. All radiology interpretation(s) finalized by discharge Discharge Plan Discharge Patient Disposition: Home Clinical Impression: Osteoarthritis of knees, bilateral Qualifiers: Osteoarthritis type: unspecified Qualified Code(s): M17.0 - Bilateral primary osteoarthritis of knee Fall Qualifiers: Encounter type: initial encounter Qualified Code(s): W19.XXXA - Unspecified fall, initial encounter Bilateral knee pain Qualifiers: Chronicity: acute Qualified Code(s): M25.561 - Pain in right knee Condition: Stable Prescriptions: New hydrocodone-acetaminophen 5-325 mg tablet 1 tab PO Q6H PRN (Reason: pain) Qty: 14 0RF No Action diltiazem HCl 120 mg capsule,extended release 12 hr 120 mg PO DAILY Eliquis 5 mg tablet 5 mg PO BID Discharge Orders: Discharge ED (Routine); Ordered 05/27/23 Ordered By: Pb Amaro Referrals: Jaun Jerome DO [Primary Care Provider] - 4-7 days Discharge Diet: Advance as tolerated Discharge Activity: Resume usual activity Patient Instructions: Knee Pain (ED), Opioid Safety Coding Level of Care Code ED Change Control Specialist for Noa Maria
[2023-05-27] MEDS: HYDROcodone-acetaminophen 5-325 mg Tablet 1 TAB PO (03:30)
--- NOTE | 2023-05-27 03:41 | CTR_ITS ---
PROCEDURE INFORMATION: Exam: CT Left Lower Extremity Without Contrast, Knee Exam date and time: 05/27/2023 3:57 AM Age: 78 years old Clinical indication: Injury or trauma; Blunt trauma; Patient HX: C/O bilateral knee pain after falling directly onto knees while using a walker. ; Additional info: Fall TECHNIQUE: Imaging protocol: CT of the left lower extremity without contrast was performed. Exam focused on the knee. Radiation optimization: All CT scans at this facility use at least one of these dose optimization techniques: automated exposure control; mA and/or kV adjustment per patient size (includes targeted exams where dose is matched to clinical indication); or iterative reconstruction. COMPARISON: CR (LOW EXM, ) 05/27/2023 3:36 AM RADIATION DOSE METRICS: Total DLP (mGy-cm): 458.24 FINDINGS: Bones/joints: Diffuse osseous demineralization. No evidence of acute fracture. Severe narrowing and virtual obliteration of the medial joint compartment associated with prominent marginal osteophytes, subchondral cysts, findings consistent with severe osteoarthritis. Slightly less severe narrowing of the lateral joint compartment and the patellofemoral joint. A [id number] chronic joint effusion rather than hemarthrosis. Soft tissues: Minimal stranding hematoma anterior to the patella. CT/CT knee LT wo con* [id number] IMPRESSION: 1. Severe osteoarthritis with involvement of all 3 compartments. 2. A small to moderate chronic joint effusion. 3. No acute fracture or dislocation.
--- NOTE | 2023-05-27 03:41 | CTR_ITS ---
PROCEDURE INFORMATION: Exam: CT Right Lower Extremity Without Contrast, Knee Exam date and time: 05/27/2023 4:00 AM Age: 78 years old Clinical indication: Injury or trauma; Blunt trauma; Right; Patient HX: C/O bilateral knee pain after falling directly onto knees while using a walker. ; Additional info: Fall TECHNIQUE: Imaging protocol: CT of the right lower extremity without contrast was performed. Exam focused on the knee. Radiation optimization: All CT scans at this facility use at least one of these dose optimization techniques: automated exposure control; mA and/or kV adjustment per patient size (includes targeted exams where dose is matched to clinical indication); or iterative reconstruction. COMPARISON: CR (LOW EXM, ) 05/27/2023 3:29 AM RADIATION DOSE METRICS: Total DLP (mGy-cm): 414.69 FINDINGS: Bones/joints: Chronic depression deformity of the lateral tibial plateau. Severe narrowing of the lateral joint compartment and marginal osteophytes consistent with osteoarthritis. Mild lateral subluxation of the tibia from the distal femur which is chronic when compared to 09/30/2019 and may represent ligamentous laxity. No acute fracture. Soft tissues: Edema in the subcutaneous adipose tissues anterior to the patella and patellar tendon. Other findings: A moderate-sized pleural effusion rather than acute hemarthrosis. CT/CT knee RT wo con* [id number] IMPRESSION: 1. Findings suggest chronic osteoarthritis of the right knee with prominent osteophytes and moderate pleural effusion. 2. Mild chronic lateral subluxation. 3. Edema of the anterior subcutaneous adipose tissues.
--- NOTE | 2023-05-27 03:41 | XRR_ITS ---
PROCEDURE INFORMATION: Exam: XR Pelvis Exam date and time: 05/27/2023 3:48 AM Age: 78 years old Clinical indication: Injury or trauma; Blunt trauma (contusions or hematomas); Prior surgery; Surgery date: 6+ months; Surgery type: Hysto; Patient HX: C/O left hip pain after falling at home while using walker. ; Additional info: Fall TECHNIQUE: Imaging protocol: Radiologic exam of the pelvis. Views: 1 or 2 view. COMPARISON: CT abdomen pelvis con [id number] 04/04/2023 11:55 PM FINDINGS: Bones/joints: No acute fracture or dislocation. Severe joint narrowing of the left hip, sclerosis and subchondral cysts, consistent with osteoarthritis. Soft tissues: Iliac node chain and paravertebral surgical clips. XR/XR pelvis 1-2V* [id number] IMPRESSION: 1. No acute fracture or dislocation. 2. Severe degenerative changes of the left hip.
[2023-05-27 05:24] VITALS: BP 123/79; PULSE 91; RESP 16; TEMP 36.8; O2SAT 100
== END 2023-05-27 05:33 | disposition home or self-care (01) ==
PROVIDERS: Emergency Provider Emergency Medicine; PCP Family Medicine
DX: M25.561 Pain in right knee (principal); M25.562 Pain in left knee; W19.XXXA Unspecified fall, initial encounter; M17.0 Bilateral primary osteoarthritis of knee
CPT/HCPCS: 72170; 73562; 73700; 99284